=== PATIENT | female | born 1940 | race Caucasian/White ===

== ENCOUNTER → 2017-01-02 | Outpatient (CLI) | payer OTHER ==
[2016-01-04 12:59] VITALS: BP 141/77; PULSE 85
[~2017-01-02] MED LIST: AMOX875T PO; CALCTAB7 PO; CHOL1CAP57 PO; DENO60SO INJ; LOVA10TA2 PO; NLV/20 PO
[2017-01-02 13:03] VITALS: BP 143/84; PULSE 78; TEMP 36.5; O2SAT 94
--- NOTE | 2017-01-02 13:53 | Radiation Oncology Follow-Up ---
Radiation Oncology Follow-Up Date of Visit Jan 02, 2017. Reason For Visit Annual follow-up Radiation Completion Date Hypo 05/27/12 Diagnosis (1) Ductal carcinoma in situ (DCIS) of right breast Status: Resolved Onset Date: 02/14/2012 Stage: 0 Permanent Comment: Abnormal right breast mammogram Status post stereotactic vacuum-assisted biopsy 02/14/2012 revealing DCIS Estrogen receptor positive progesterone receptor positive HER-2/margareth positive Protocol study with use of Herceptin in DCIS Status post radiation therapy utilizing hypo-fractionation completed 05/27/2012 received 5006 cGy Last Edited By: Fely Vargas on Jan 04, 2015 13:45 Interim History She is doing well over this past year. She has noted no change from her breast. She has noticed no masses or tenderness and no change in the axilla. She is up-to-date on mammography. She had a mammogram 03/07/2016. There was no mammographic evidence of malignancy. One year screening mammogram was recommended. BI-RADS Category 2. She continues on tamoxifen. She denies side effects. She does have osteoporosis and is being treated through medical oncology with prolia every 6 months. She was unsure as to whether her mammogram for this year is scheduled. She had participated in a protocol study using Herceptin. She was seen by the protocol nurse at her visit at medical oncology. Allergies Coded Allergies: No Known Allergies (Unverified , 11/17/14) Home Medications Scheduled Calcium Carbonate-Vitamin D W/ (Caltrate 600 Plus), 1 TAB PO DAILY Cholecalciferol (Vitamin D3), 2,000 INTER.UNIT PO DAILY Denosumab (Prolia), 60 MG INJ Q6 MONTHS Lovastatin (Mevacor), 10 MG PO DAILY Tamoxifen Citrate (Tamoxifen Citrate), 20 MG PO DAILY Review of Systems Gastrointestinal: Symptoms: WNL Oral: Symptoms: No Problems Respiratory: Symptoms: WNL Other Respiratory: " had pneumonia in " Urinary: Symptoms: WNL Skin: Symptoms: No Problems Breast: Right Upper Arm Measurement: 25.2 Right Mid Arm Measurement: 20.0 Right Wrist Measurement: 15.4 Left Upper Arm Measurement: 25.4 Left Mid Arm Measurement: 21.0 Left Wrist Measurement: 15.4 Arm Dominence: Right Patient Cosmetic Evaluation: Excellent Staff Cosmetic Evalaluation: Excellent Physical Exam Vital Signs Date Time Temp Pulse Resp B/P Pulse Ox O2 Delivery O2 Flow Rate FiO2 01/02/17 13:03 36.5 78 16 143/84 94 Pain: Side: Bilateral Pain Location: None Patient Pain Scale: 0 - 10 Initial Pain Intensity: 0.0 Fatigue: None General Appearance: no apparent distress Eyes: normal inspection, EOMI ENT: normal ENT inspection, hearing grossly normal Neck: no adenopathy, thyroid normal Respiratory/Chest: lungs clear, no respiratory distress, no accessory muscle use Breast: Breast examination reveals well-healed incisions in the right breast. There are no masses or tenderness and no axillary adenopathy. She has a slight amount of telangiectasia in the area of the incision. There are no skin retractions or nipple changes. Using the Crownpoint score cosmesis she has a good outcome. Left breast showed no masses or tenderness no axillary adenopathy. Cardiovascular: regular rate, rhythm, no gallop, no murmur Abdomen: non tender, soft Neurologic/Psychiatric: no motor/sensory deficits, alert, normal mood/affect Skin: warm/dry Lymphatic: no adenopathy Laboratory Studies Test 11/07/16 10:26 White Blood Count 6.79 K/uL (4.8-10.8) Red Blood Count 4.56 M/uL (4.2-5.4) Hemoglobin 14.1 g/dL (12.0-16.0) Hematocrit 41.8 % (37-47) Mean Corpuscular Volume 91.7 fL (80-100) Mean Corpuscular Hemoglobin 30.9 pg (25-34) Mean Corpuscular Hemoglobin Concent 33.7 g/dl (32-36) Platelet Count 215 K/uL (130-400) Mean Platelet Volume 10.1 fL (7.4-10.4) Neutrophils (%) (Auto) 56.5 % Lymphocytes (%) (Auto) 26.5 % Monocytes (%) (Auto) 7.8 % Eosinophils (%) (Auto) 8.4 % Basophils (%) (Auto) 0.7 % Neutrophils # (Auto) 3.83 K/uL (1.4-6.5) Lymphocytes # (Auto) 1.80 K/uL (1.2-3.4) Monocytes # (Auto) 0.53 K/uL (0.11-0.59) Eosinophils # (Auto) 0.57 K/uL (0-0.5) Basophils # (Auto) 0.05 K/uL (0-0.2) RDW Standard Deviation 42.8 fL (36.4-46.3) RDW Coefficient of Variation 12.8 % (11.5-14.5) Immature Granulocyte % (Auto) 0.1 % Immature Granulocyte # (Auto) 0.01 K/uL (0.00-0.02) Sodium Level 142 mmol/L (136-145) Potassium Level 4.3 mmol/L (3.5-5.1) Chloride Level 105 mmol/L (98-107) Carbon Dioxide Level 32 mmol/L (21-32) Anion Gap 5.0 mmol/L (3-11) Blood Urea Nitrogen 16 mg/dl (7-18) Creatinine 0.82 mg/dl (0.60-1.20) Est Creatinine Clear Calc Drug Dose 44.2 ml/min Estimated GFR () 80.0 Estimated GFR (Non- 69.0 BUN/Creatinine Ratio 19.3 (10-20) Random Glucose 102 mg/dl (70-99) Calcium Level 9.0 mg/dl (8.5-10.1) Total Bilirubin 0.3 mg/dl (0.2-1) Aspartate Amino Transferase (AST) 15 U/L (15-37) Alanine Aminotransferase (ALT) 22 U/L (12-78) Alkaline Phosphatase 44 U/L (45-117) Lactate Dehydrogenase 206 U/L (84-246) Total Protein 6.5 gm/dl (6.4-8.2) Albumin 3.5 gm/dl (3.4-5.0) Globulin 3.0 gm/dl (2.5-4.0) Albumin/Globulin Ratio 1.2 (0.9-2) Additional Studies Patient: TIFF GOMEZ [facility] Rec: [id number] Address1: [address] [place] [address] Address2: Acct ID: [id number] Date: 1940 Sex: F Ref Phy: Att Phy: Fely Vargas PA-C Pri Phy: Alfonzo Vargas M.D. Inter Phy: Sury Benitez [facility] Zip: [place] [address] SC: [id number] Report #: [id number] Stove Installer: BIBIANA Diagnosis: ASYMPTOMATIC/HX BREAST CA Service Date: 03/07/16 MNE: [id number] Ordering Dr: Fely Vargas PA-C CC: Fely Vargas PA-C CONF: DICTATED BY: Sury Benitez MD MAMMOGRAPHY REPORT BILATERAL DIGITAL SCREENING MAMMOGRAM 3D/2D WITH CAD: 03/07/2016 CLINICAL HISTORY: Routine screening mammogram. Comparison is made to exams dated: 03/04/2015 mammogram, 03/01/2014 mammogram, 02/16/2013 mammogram, 09/04/2012 mammogram, 03/09/2010 mammogram, and 03/26/2006 mammogram - [facility]. FINDINGS: Breast tomosynthesis in addition to full field digital CC and MLO views were obtained. The tissue of both breasts is heterogeneously dense, which may obscure small masses. Current study was also evaluated with a Computer Aided Detection (CAD) system. There is stable expected architectural distortion in the anterior retroareolar right breast, at the site of prior lumpectomy. Surgical clips remain in place. There are moderate vascular calcifications in the breasts. A stable asymmetry in the superior posterior left breast on the MLO view is similar on all available prior mammograms dating back to at least 03/26/2006, therefore likely benign. No new suspicious mass, architectural distortion or cluster of suspicious microcalcifications is seen. IMPRESSION: ACR BI-RADS CATEGORY 2: BENIGN There is no mammographic evidence of malignancy. A 1 year screening mammogram is recommended. The patient will receive written notification of the results. Approximately 10% of breast cancers are not detected with mammography. A negative mammographic report should not delay biopsy if a clinically suggestive mass is present. Sury Benitez M.D. ay/:03/07/2016 11:48:49 Sterile Process Tech: Mahsa BALBUENA(Marc)(M), [facility] letter sent: Normal 1/2 BI-RADS Code: ACR BI-RADS Category 2: Benign Dictated by: Sury Benitez MD Signed by: Sury Benitez MD Assessment & Plan Plan: The mammography department was called and she did have a mammogram scheduled for March. She is given the date and time. Continue on the tamoxifen. Continue follow-up with medical oncology and her primary care physician. A follow-up appointment with our office was not given. She may call if she has May questions or concerns we'll be happy to see her. Total Time In Follow-Up I spent 20 minutes the need to the patient and performing examination. I spent 15 minutes reviewing information completing this note. Copy To May Marshall., SHARIFA; Alfonzo Vargas M.D.; Nikia Armendariz CRNP
== END | disposition home or self-care (01) ==
LOC: C.ONC 12:58
PROVIDERS: ATTEND Physician Assistant Medical
DX: Z08 Encounter for follow-up examination after completed treatment for malignant neoplasm (principal); Z92.3 Personal history of irradiation; Z85.3 Personal history of malignant neoplasm of breast

== ENCOUNTER → 2017-02-22 | Outpatient (CLI) | payer OTHER ==
[2017-02-22 12:01] LABS: BASO % 0.4 %; BASO ABS # 0.03 K/uL (0-0.2); COMPLETE YES; EOS % 10.5 %; HEMATOCRIT 43.8 % (37-47); IG% 0.1 %; LYMPH % 28.8 %; MEAN CELL VOLUME 91.8 fL (80-100); MEAN CORPUSCULAR HEMOGLOBIN 29.4 pg (25-34); MEAN PLATELET VOLUME 9.9 fL (7.4-10.4); MONO % 8.5 %; NEUT % 51.7 %; PLATELET COUNT 219 K/uL (130-400); RED BLOOD COUNT 4.77 M/uL (4.2-5.4); WHITE BLOOD COUNT 7.63 K/uL (4.8-10.8)
[2017-02-22 12:33] LABS: ALB/GLOB RATIO 1.1 (0.9-2); ALKALINE PHOSPHATASE 45 U/L (45-117); ALT/SGPT 21 U/L (12-78); AST/SGOT 20 U/L (15-37); BLOOD UREA NITROGEN 13 mg/dl (7-18); BUN/CREATININE RATIO 14.9 (10-20); CALCIUM 8.4 mg/dl (8.5-10.1); CARBON DIOXIDE 30 mmol/L (21-32); CHLORIDE 109 mmol/L (98-107); CHOLESTEROL 168 mg/dl (0-200); CREATININE 0.88 mg/dl (0.60-1.20); GLUCOSE 100 mg/dl (70-99); POTASSIUM 4.3 mmol/L (3.5-5.1); SODIUM 143 mmol/L (136-145); TRIGLYCERIDES 115 mg/dl (0-150); VERY LOW DENSITY LIPOPROT CALC 23 mg/dl
[2017-02-22 12:35] LABS: CHOLESTEROL/HDL RATIO 2.5; HDL CHOLESTEROL 68 mg/dl; LDL CHOLESTEROL CALCULATED 77 mg/dl
== END | disposition home or self-care (01) ==
LOC: C.LABBFT 08:33
PROVIDERS: ATTEND Internal Medicine Pulmonary Disease
DX: E78.01 Familial hypercholesterolemia (principal); J33.9 Nasal polyp, unspecified; D05.90 Unspecified type of carcinoma in situ of unspecified breast

== ENCOUNTER → 2017-03-08 | Outpatient (CLI) | payer OTHER ==
--- NOTE | 2017-03-08 13:48 | MAMMOGRAPHY REPORT ---
BILATERAL DIGITAL SCREENING MAMMOGRAM TOMOSYNTHESIS WITH CAD: 03/08/2017 CLINICAL HISTORY: Routine screening. Patient has no complaints. TECHNIQUE: Breast tomosynthesis in addition to standard 2D mammography was performed. Current study was also evaluated with a Computer Aided Detection (CAD) system. COMPARISON: Comparison is made to exams dated: 03/07/2016 mammogram, 03/04/2015 mammogram, 09/01/2014 mammogram, 03/01/2014 mammogram, 02/16/2013 mammogram, and 09/04/2012 mammogram - [facility]. BREAST COMPOSITION: The tissue of both breasts is heterogeneously dense, which may obscure small mas ses. FINDINGS: No suspicious masses, calcifications, or areas of architectural distortion are noted in ei ther breast. There has been no significant interval change compared to prior exams. There are stable postsurgical changes in the right breast from prior lumpectomy. Bilateral benign-appearing calcific ations, predominantly vascular calcifications, are again noted. Asymmetry in the left superior poste rior breast is stable. IMPRESSION: ACR BI-RADS CATEGORY 2: BENIGN There is no mammographic evidence of malignancy. A 1 year screening mammogram is recommended. The pa tient will receive written notification of the results. Approximately 10% of breast cancers are not detected with mammography. A negative mammographic report should not delay biopsy if a clinically suggestive mass is present. Georgiana Rodriguez M.D. /:03/08/2017 12:06:17 Embroiderer: Gabbie Cook, [facility] letter sent: Normal 1/2 BI-RADS Code: ACR BI-RADS Category 2: Benign
== END | disposition home or self-care (01) ==
LOC: C.MAMM 10:39
PROVIDERS: ATTEND Nurse Practitioner Family
DX: Z12.31 Encounter for screening mammogram for malignant neoplasm of breast (principal); Z85.3 Personal history of malignant neoplasm of breast; Z08 Encounter for follow-up examination after completed treatment for malignant neoplasm

== ENCOUNTER 2017-06-23 16:03 | Emergency (ER) | payer OTHER ==
[~2017-06-23] VITALS: Ht 157.5 cm; Wt 54.5 kg
[~2017-06-23 16:03] MED LIST changes: -AMOX875T PO
[2017-06-23 16:18] VITALS: TEMP 37.1; Ht 157.5 cm; Wt 54.5 kg
[2017-06-23] MEDS ORDERED: TRIMETHOPRIM/POLYMYXIN B OP ONE (17:15)
--- NOTE | 2017-06-23 17:15 | EMERGENCY ROOM VISIT NOTE ---
History First contact with patient: 16:53 Chief Complaint: OTHER COMPLAINT Stated Complaint: COLD IN EYES ETC History of Present Illness The patient is a 77 year old female who presents to the Emergency Room with complaints of discharge from her eyes and cold-like symptoms for the last 3 days. The patient reports a history of nasal polyps. She thinks that her nose is completely stuffed shot. She has had green drainage from the nose. She also reports a cough. It is nonproductive. She woke up yesterday morning with her eyes matted shut. They're draining purulent drainage. She denies any changes in vision. Review of Systems 10 system review performed and negative unless noted in HPI or below Past Medical/Surgical History Medical Problems: (1) Ductal carcinoma in situ (DCIS) of right breast C Family History Cancer Diabetes mellitus Heart disease Social History Smoking Status: Never Smoker Marital Status: Housing Status: lives with significant other Occupation Status: retired Current/Historical Medications Scheduled Amoxicillin & Pot Clavulanate (Augmentin 875-125 mg), 1 TAB PO BID Calcium Carbonate-Vitamin D W/ (Caltrate 600 Plus), 1 TAB PO DAILY Cholecalciferol (Vitamin D3), 2,000 INTER.UNIT PO DAILY Denosumab (Prolia), 60 MG INJ Q6 MONTHS Lovastatin (Mevacor), 10 MG PO DAILY Tamoxifen Citrate (Tamoxifen Citrate), 20 MG PO DAILY Physical Exam Vital Signs Date Time Temp Pulse Resp B/P (MAP) Pulse Ox O2 Delivery O2 Flow Rate FiO2 06/23/17 19:22 98 18 150/75 95 Room Air 06/23/17 16:18 37.1 105 18 138/81 90 Room Air Physical Exam VITALS: Vitals are noted on the nurse's note and reviewed by myself. Vital signs stable. GENERAL: 77-year-old female, in no acute distress, nondiaphoretic, well- developed well-nourished. SKIN: The skin was without rashes, erythema, edema, or bruising. HEAD: Normocephalic atraumatic. EYES: Yellow, purulent drainage noted from the eyes bilaterally. No significant injection bilaterally. Pupils equal round and reactive to light and accommodation. Conjunctivae without injection, sclerae without icterus. Extraocular movements intact. NOSE: Large polyp noted in the left naris. Turbinates edematous bilaterally. The right terminated is not patent. Green discharge noted. MOUTH: Mucous membranes moist. Tonsils are not enlarged. Pharynx without erythema or exudate. Uvula midline. Airway patent. Tongue does not deviate. NECK: Supple without nuchal rigidity. No lymphadenopathy. Cervical spine is nontender. No JVD. HEART: Regular rate and rhythm without murmurs gallops or rubs. LUNGS: Clear to auscultation bilaterally without wheezes, rales or rhonchi. No accessory muscle use. MUSCULOSKELETAL: No muscle atrophy, erythema, or edema noted. Strength 5/5 throughout. NEURO: Patient was alert and oriented to person place and time. Normal sensation to touch. No focal neurological deficits. Medical Decision & Procedures ER Provider Diagnostic Interpretation: Chest x-ray IMPRESSION: 1. No acute cardiopulmonary disease. Medications Administered Medications (Trade) Dose Ordered Sig/Pedrito Route Start Time Stop Time Status Last Admin Dose Admin Polymyxin/ Trimethoprim Sulfate (Polytrim Oph Soln) 2 drops NOW ONCE OP 06/23/17 17:15 06/23/17 17:16 DC 06/23/17 17:24 2 DROPS Amoxicillin/ Clavulanate Potassium (Augmentin Tab) 875 mg NOW ONCE PO 06/23/17 19:15 06/23/17 19:16 DC 06/23/17 19:24 875 MG ED Course The patient was seen and examined Polytrim drops were administered to both eyes Imaging was performed and reviewed The patient was given 1 dose of Augmentin. We discussed the results of her workup. She voiced understanding. Discharge instructions were reviewed, and she was discharged in good condition Medical Decision Differential diagnosis: Bacterial versus viral conjunctivitis, sinusitis, pneumonia, bronchitis This patient is a 77-year-old female that presents emergency department with complaints of discharge from both of her eyes and also a very stuffy nose. On exam, the patient had purulent drainage from both eyes. She also had significant edema of the turbinates in her nose in addition to polyps. Given the purulent discharge, and amount of edema, I opted to treat the patient with a ten-day course of Augmentin for sinusitis. She was also given Polytrim eyedrops for conjunctivitis. This chart was completed in part utilizing [employer] Voice Recognition software. Attempts were made to minimize the grammatical errors, random word insertions, pronoun errors and incomplete sentences. Any formal questions or concerns about the content, text or information contained within the body of this dictation should be directly addressed to the provider for clarification. Blood Pressure Screening Patient's blood pressure: Elevated blood pressure Blood pressure disposition: Elevated BP felt to be situational Impression Primary Impression: Conjunctivitis Additional Impression: Sinusitis Departure Information Dispostion Home / Self-Care Condition GOOD Prescriptions Amoxicillin & Pot Clavulanate (Augmentin 875-125 mg) 1 Tab Tab 1 TAB PO BID for 7 Days, #14 TAB Prov: Maria Alejandra Verduzco PA-C 06/23/17 Referrals Alfonzo Vargas M.D. (PCP) Patient Instructions [facility] Additional Instructions You were evaluated in the hospital today for a cough and an eye infection. You have been prescribed eyedrops and an antibiotic. Please take the entire course of oral antibiotics. Please eat yogurt at least once daily while on this antibiotic. Apply to eyedrops to each eye 3 times daily for 5 days. Please follow-up with her primary care physician within the next 3 days for a recheck. Please return to the emergency department with any new or worsening symptoms. Problem Qualifiers
--- NOTE | 2017-06-23 17:51 | EMERGENCY ROOM VISIT NOTE ---
ED Visit Note First contact with patient: 16:53 77-year-old female with cold-like symptoms and a long history of nasal polyps was fully evaluated by Maria Alejandra Verduzco PA-C. Please see her note. I also independently evaluated the patient.
--- NOTE | 2017-06-23 18:55 | DIAGNOSTIC IMAGING REPORT ---
CHEST 2 VIEWS ROUTINE CLINICAL HISTORY: 77 years-old Female presenting with cough r/o PNA. TECHNIQUE: PA and lateral views of the chest were obtained. COMPARISON: 10/24/2015. FINDINGS: Atherosclerosis of aortic arch. Cardiac silhouette normal in size. Surgical clips project over the right lung base, possibly within the right breast. Lungs and pleural spaces clear. Old rib fracture of the right posterior sixth rib again noted. Dextroscoliotic curvature of the spine may be present, although the patient is LONG rotated. Upper abdomen normal. IMPRESSION: 1. No acute cardiopulmonary disease. Electronically signed by: Kevin Argueta M.D. 06/23/2017 6:54 PM Dictated Date/Time: 06/23/2017 6:53 PM
[2017-06-23] MEDS ORDERED: AMOX875T PO (19:02)
[2017-06-23] MEDS ORDERED: AMOXICILLIN/CLAVULANATE TAB 875 MG TAB PO ONE (19:15)
[2017-06-23 19:22] VITALS: BP 150/75; PULSE 98; O2SAT 95
== END 2017-06-23 19:27 | disposition home or self-care (01) ==
LOC: C.EDB 16:04 → C.EDD 19:27
DX: H10.9 Unspecified conjunctivitis (principal); J32.9 Chronic sinusitis, unspecified; Z80.9 Family history of malignant neoplasm, unspecified; Z83.3 Family history of diabetes mellitus; Z79.899 Other long term (current) drug therapy; J33.9 Nasal polyp, unspecified

== ENCOUNTER → 2017-09-06 | Outpatient (CLI) | payer OTHER ==
[2017-09-06 13:10] LABS: BLOOD UREA NITROGEN 15 mg/dl (7-18); BUN/CREATININE RATIO 16.2 (10-20); CALCIUM 8.9 mg/dl (8.5-10.1); CARBON DIOXIDE 30 mmol/L (21-32); CHLORIDE 105 mmol/L (98-107); CREATININE 0.91 mg/dl (0.60-1.20); GLUCOSE 94 mg/dl (70-99); MAGNESIUM 2.4 mg/dl (1.8-2.4); POTASSIUM 4.4 mmol/L (3.5-5.1); SODIUM 139 mmol/L (136-145)
== END | disposition home or self-care (01) ==
LOC: C.LAB1850 10:19
PROVIDERS: ATTEND Internal Medicine Cardiovascular Disease
DX: I44.7 Left bundle-branch block, unspecified (principal); I42.9 Cardiomyopathy, unspecified; I49.3 Ventricular premature depolarization; R06.09 Other forms of dyspnea

== ENCOUNTER → 2017-09-26 | Outpatient (CLI) | payer OTHER ==
[~2017-09-26] MED LIST changes: +REGADENOSON 0.4 MG/5 ML SYR ONE
--- NOTE | 2017-09-27 07:28 | Myocardial Perfusion Study ---
Myocardial Perfusion Study Rpt Myocardial Perfusion Study Rpt Date of Service 09/27/2017 Myocardial Perfusion Study Rpt Procedure: 1. Myocardial perfusion study performed in multiple views/images 2. Lexiscan pharmacologic stress ECG Indications: 1. Cardiomyopathy 2. LBBB Consent: Informed written consent was obtained prior to the procedure. Ordering physician: Dr. Clinton Procedural details: For the stress portion of the study, Lexiscan 0.4 mg was intravenously administered followed by a saline flush. This was followed by 33 mCi of technetium 99m Cardiolite, injected at 11:15 a.m. on 09/26/2017. 30 minutes following the injection, imaging of the heart was performed in multiple projections. For the rest portion of the study, 9.5 mCi technetium 99m Cardiolite was injected intravenously at 9:35 a.m. on 09/26/2017. 1 hour following the injection, imaging of the heart was performed in the same projections. Lexiscan stress ECG: Resting ECG demonstrated: NSR at 68 bpm. LBBB. Maximum heart rate: 106 bpm Resting blood pressure: 156/69 mmHg Maximum blood pressure: 156/69 mmHg Maximal, age-predicted heart rate: 74 % Significant ST changes: None Arrhythmia: No arrhythmia. PVCs noted. Symptoms: Coughing Findings: Rotating raw imaging demonstrated no significant lung uptake. There is no significant motion artifact. Heart size appeared normal. Myocardial perfusion demonstrated a moderate sized area of mildly reduced uptake involving the basal to apical septum, basal to apical anteroseptum, and mid to distal anterior wall. These defects were fixed in post stress and rest imaging. There is also severe intestinal uptake on the rest imaging noted near the inferolateral wall. There were no significant reversible defects to suggest ischemia. Ejection fraction: 66 % Wall motion: Normal No significant transient ischemic dilation. Impression: 1. No ischemic changes suggested on Lexiscan myocardial perfusion study. 2. Fixed LAD territory defects likely represent LBBB artifact given normal wall motion. 3. Normal left ventricular systolic function. EF 66%. 4. Normal wall motion. 5. No arrhythmia. 6. Indeterminate Lexiscan ECG given LBBB.
== END | disposition home or self-care (01) ==
LOC: C.NUCL 09:06
PROVIDERS: ATTEND Internal Medicine Cardiovascular Disease
DX: I42.9 Cardiomyopathy, unspecified (principal); R06.09 Other forms of dyspnea; I44.7 Left bundle-branch block, unspecified; I49.3 Ventricular premature depolarization

== ENCOUNTER → 2017-10-29 | Outpatient (CLI) | payer OTHER ==
[~2017-10-29] MED LIST changes: -REGADENOSON 0.4 MG/5 ML SYR ONE
[2017-10-29 12:52] LABS: BASO % 0.6 %; BASO ABS # 0.04 K/uL (0-0.2); EOS % 7.6 %; EOS ABS # 0.48 K/uL (0-0.5); HEMOGLOBIN 14.4 g/dL (12.0-16.0); IG# 0.01 K/uL (0.00-0.02); LYMPH % 32.2 %; LYMPH ABS # 2.02 K/uL (1.2-3.4); MEAN CELL VOLUME 92.3 fL (80-100); MEAN CORPUSCULAR HEMOGLOBIN 30.9 pg (25-34); MEAN CORPUSCULAR HGB CONC 33.5 g/dl (32-36); NEUT % 51.4 %; NEUT ABS # 3.23 K/uL (1.4-6.5); PLATELET COUNT 234 K/uL (130-400); RED CELL DISTRIBUTION WIDTH CV 12.9 % (11.5-14.5); WHITE BLOOD COUNT 6.28 K/uL (4.8-10.8)
[2017-10-29 13:28] LABS: ALBUMIN 3.3 gm/dl (3.4-5.0); ALT/SGPT 24 U/L (12-78); AST/SGOT 16 U/L (15-37); BLOOD UREA NITROGEN 14 mg/dl (7-18); CALCIUM 8.7 mg/dl (8.5-10.1); CARBON DIOXIDE 28 mmol/L (21-32); CREATININE 0.97 mg/dl (0.60-1.20); GLUCOSE 114 mg/dl (70-99); POTASSIUM 4.8 mmol/L (3.5-5.1); SODIUM 139 mmol/L (136-145)
[2017-10-29 13:29] LABS: ALKALINE PHOSPHATASE 52 U/L (45-117); TOTAL PROTEIN 6.4 gm/dl (6.4-8.2)
== END | disposition home or self-care (01) ==
LOC: C.LABBFT 10:49
PROVIDERS: ATTEND Nurse Practitioner Family
DX: D05.90 Unspecified type of carcinoma in situ of unspecified breast (principal)

== ENCOUNTER → 2018-04-21 | Outpatient (CLI) | payer OTHER | END | disposition home or self-care (01) | LOC: C.MAMM 09:54 | PROVIDERS: ATTEND Nurse Practitioner Family | DX: D05.90 Unspecified type of carcinoma in situ of unspecified breast (principal); M81.0 Age-related osteoporosis without current pathological fracture; M85.88 Other specified disorders of bone density and structure, other site; M85.852 Other specified disorders of bone density and structure, left thigh ==

== ENCOUNTER → 2018-05-06 | Outpatient (CLI) | payer OTHER ==
--- NOTE | 2018-05-07 13:38 | MAMMOGRAPHY REPORT ---
BILATERAL DIGITAL SCREENING MAMMOGRAM TOMOSYNTHESIS WITH CAD: 05/06/2018 CLINICAL HISTORY: Asymptomatic. Personal history of breast cancer. TECHNIQUE: The study was acquired using full field digital technology and interpreted from soft copy. Breast tomosynthesis in addition to standard 2D mammography was performed. Current study was also ev aluated with a Computer Aided Detection (CAD) system. COMPARISON: Comparison is made to exams dated: 03/08/2017 mammogram, 03/07/2016 mammogram, 03/04/2015 m ammogram, 09/01/2014 mammogram, 03/01/2014 mammogram, and 02/16/2013 mammogram - [facility] enter. BREAST COMPOSITION: The tissue of both breasts is heterogeneously dense, which may obscure small mass es. FINDINGS: There are stable postsurgical changes in the right breast, with skin irregularity in the an terior breast. There are stable surgical clips in place. Moderate vascular calcification bilaterall y. No new suspicious mass, architectural distortion or cluster of microcalcifications is seen. IMPRESSION: ACR BI-RADS CATEGORY 1: NEGATIVE There is no mammographic evidence of malignancy. A 1 year screening mammogram is recommended.( 019) The patient will receive written notification of the results. Some breast cancers are not detected with mammography. A negative mammographic report should not quiana y biopsy if a clinically suggestive mass is present. Sury Benitez M.D. ay/:05/06/2018 18:56:34 Supervisor Pipe Manufacture: Yun Olmos, RT(Marc)(Petrona)(BD), [facility] letter sent: Normal 1/2 BI-RADS Code: ACR BI-RADS Category 1: Negative
== END | disposition home or self-care (01) ==
LOC: C.MAMM 08:54
PROVIDERS: ATTEND Nurse Practitioner Family
DX: Z12.31 Encounter for screening mammogram for malignant neoplasm of breast (principal); Z85.3 Personal history of malignant neoplasm of breast

== ENCOUNTER 2025-07-29 20:04 | Inpatient (IN) ==
[2025-07-29] MEDS: OPTIRAY 320 125ml IV ONE (20:09)
[2025-07-29] MEDS: SODIUM CHLORIDE 0.9% 1,000 ML IV ONE (20:20)
--- NOTE | 2025-07-29 20:29 | CT Scan Report ---
Exam(s): CT HEAD Without Contrast EXAM: CT Head Without Intravenous Contrast CLINICAL HISTORY: Reason for exam: neuro deficit, acute stroke suspected. TECHNIQUE: Axial computed tomography images of the head/brain without intravenous contrast. CTDI is 42.53 mGy and DLP is 774.27 mGy-cm. Automated exposure control was utilized for the study. A dose lowering technique was utilized adhering to the principles of ALARA. Moderate motion artifact, improved with repeat scanning. COMPARISON: None. FINDINGS: Brain: No mass, edema, mass effect or acute infarct. No acute hemorrhage. Mild atrophy and chronic, nonspecific white matter disease. Ventricles: No hydrocephalus or midline shift. Bones/joints: No acute finding. Soft tissues: No scalp hematoma. Visualized Sinuses: Scattered mucosal thickening, no fluid levels. Moderate bilateral nasal cavity soft tissue nodule, probable nasal polyps. Mastoid air cells: No mastoid effusion. IMPRESSION: 1. Mild age-related findings. 2. No acute infarct, bleed, or acute intracranial abnormality. 3. Limited evaluation due to motion artifact, in spite of repeat scanning. Communications: Call Doctor Stroke Electronically signed by: Narda Emery M.D. 07/29/25 20:27 PM
--- NOTE | 2025-07-29 20:31 | CT Scan Report ---
Exam(s): CTA NECK With Contrast IV Amt: 118 ml optiray 320 EXAM: CT Angiography Neck With Intravenous Contrast CLINICAL HISTORY: Reason for exam: neuro deficit, acute stroke suspected. TECHNIQUE: Routine carotid CT angiography protocol was performed with intravenous contrast. NASCET criteria using the distal ICAs for comparison were used for evaluation of stenoses. CTDI is 11.36 mGy and DLP is 429.44 mGy-cm. Automated exposure control was utilized for the study. A dose lowering technique was utilized adhering to the principles of ALARA. MIP reconstructed images were created and reviewed. Moderate to severe motion and artifact from collaterals in the vertebral region. CONTRAST: Patient received 118 ml optiray 320 of IV contrast COMPARISON: None. FINDINGS: Right common carotid artery: Patent. Right internal carotid artery: Dense atherosclerotic calcification of the bifurcation, with significant luminal narrowing, likely severe, 80- 90% stenosis, though motion artifact limits evaluation. Right vertebral artery: Patent. Codominant. Left common carotid artery: Patent. Left internal carotid artery: Patent. Minimal bifurcation atherosclerosis, without significant stenosis Left vertebral artery: Patent. Other: IMPRESSION: 1. Severe RIGHT ICA stenosis, probable 80-90%. 2. No other dissection/occlusion/significant stenosis. 3. Significant artifact limits detail particularly for exact luminal narrowing percentage. CAROTID STENOSIS REFERENCE USING NASCET CRITERIA: % ICA stenosis = (1 - narrowest ICA diameter/diameter of distal cervical ICA) x 100. Mild - <50% stenosis. Moderate - 50-69% stenosis. Severe - 70-94% stenosis. Near occlusion - 95-99% stenosis. Occluded - 100% stenosis. Communications: Call Doctor Stroke Electronically signed by: Narda Emery M.D. 07/29/25 20:30 PM
[2025-07-29 20:32] LABS: Hematocrit (blood only) 45.0 % (37.0-47.0); Hemoglobin 14.6 g/dL (12.0-16.0); Immature Granulocytes # (auto) 0.05 K/uL (0.01-0.20); Immature Granulocytes % (auto) 0.6 %; Mean Corpuscular Hemoglobin 29.7 pg (25.0-34.0); Mean Corpuscular Volume 91.5 fL (80.0-100.0); Platelet Count 439 K/uL (130-400); RDW Standard Deviation 40.1 fL (36.4-46.3); Red Blood Count 4.92 M/uL (4.20-5.40); White Blood Count 8.81 K/ul (4.8-10.8)
--- NOTE | 2025-07-29 20:34 | Emergency Department Note ---
Impression & Plan Stroke-like symptoms, Hypertension, Right sided weakness, Carotid artery stenosis ED Provider Note NAME: TIFF GOMEZ AGE: 85 SEX: F : 1940 ARRIVES VIA: Ambulance INFORMANT: Patient ED PROVIDER(S): Parish Muller MD CHIEF COMPLAINT: right sided weakness, stroke alert PLAN: Disposition: Admit MEDICAL DECISION MAKING: The patient is a pleasant 85-year-old woman with past medical history of hyperlipidemia, history of osteoporosis, history of breast cancer 2011 who presents to the emergency department via EMS and then accompanied by her daughter for evaluation of acute onset of right-sided weakness with blurred vision with last known well estimated to be 1800 per the patient's granddaughter who was home at the time. The patient had apparently had a minor fall in the setting of right-sided weakness. There was no head strike or loss of consciousness. Patient had been in her normal state of health and had cooked dinner as she usually does. Per discussion with EMS on medical command call the patient exhibited significant right-sided weakness and facial droop. Stroke alert was activated in the field subsequently per my discussion on medical command call. Patient was taken immediately to CT for stroke assessment. On arrival the patient is in no distress, afebrile with heart rate in the 80s and blood pressure 160s-190s/80s-90s and vital signs otherwise stable. She exhibits right facial droop and mild word finding difficulty/aphasia. Right upper and right lower extremity demonstrate 4/[address] of the head and CTA of the head and neck completed and discussed with radiology and no evidence of ICH or acute CVA. Severe right carotid stenosis is present. Case was discussed with Dr. Johnson, [facility] telestroke neurology who did evaluate the patient via the telestroke terminal. Appreciate consultation and recommendations. Given the patient's symptoms and best estimate of LKW within the TNK window, treatment with TNK is recommended. Patient and family did consent. Blood pressure was controlled with 10 mg of IV labetalol improving to 140s/80s. EKG without overt acute ischemia. CXR negative for acute cardiopulmonary process per my personal preliminary review/interpretation. WBC, H/H within normal limits. Platelets 4 39K, nonspecific. Chemistry without metabolic acidosis. Electrolytes and LFTs unremarkable. High- sensitivity troponin 6.6, within normal limits. Of note, following administration of TNK the patient did develop increased confusion and recurrence of elevated blood pressures which were additionally treated with IV labetalol. She was sent back for repeat CT of the head without contrast and this was negative for acute ICH. Mentation did subsequently improve. Case was discussed with Dr. Mae, [facility] hospitalist, who will evaluate the patient for admission. Further management per admitting team. Triage Nursing notes reviewed and agree them. Prior/external medical records reviewed Vital Signs: reviewed Differential diagnosis: Infection, dehydration, metabolic abnormality, hypo/hyperglycemia, electrolyte disturbance, anemia, hypoxia, cardiac sources, intracerebral event, toxicologic, neurologic, as well as other pathologies. ER treatment provided: See below. Diagnostics interpreted by me: ECG: Sinus rhythm with occasional PVCs, 81 bpm, nonspecific intraventricular conduction block, LVH, no sgarbossa criteria, QTc 501, QRS 136. Similar to prior. Cardiac Monitoring: An order for continuous cardiac monitoring was placed and demonstrated Sinus rhythm with occasional PVCs, 81 bpm. Laboratory studies: See below Imaging studies: See below Consultation(s): Dr. Johnson, [facility] telestroke neurology. Dr. Mae, [facility] hospitalist. HPI: Per MDM. ROS: See above HPI for pertinent positives & negatives. A total of 10 systems reviewed and were otherwise negative. VITALS:See Below PHYSICAL EXAMINATION: GENERAL: Awake, alert, in no distress HENT: Normocephalic, atraumatic. Oropharynx with dry mucous membranes and otherwise unremarkable. EYES: Normal conjunctiva. Sclera non-icteric. EOMI. No nystamgus. PEARRL. NECK: Supple. No nuchal rigidity. FROM. No JVD. RESPIRATORY: Clear to auscultation. CARDIAC: Regular rate, normal rhythm. Extremities warm and well perfused. Pulses equal. ABDOMEN: Soft, non-distended. No tenderness to palpation. No rebound or guarding. No masses. MUSCULOSKELETAL: Chest examination reveals no tenderness. The back is symmetrical on inspection without obvious abnormality. There is no CVA tenderness to palpation. No joint edema. LOWER EXTREMITIES: Calves are equal size bilaterally and non-tender. No edema. No discoloration. NEURO: Right lower facial droop and mild word finding difficulty/aphasia. Right upper and right lower extremity demonstrate 4/5 strength with drift. SKIN: No rash or jaundice noted. ED COURSE: Critical Care: I have personally spent greater than 35 minutes of critical care time in the direct management of this patient. This includes bedside care, interpretation of diagnostic studies, and testing, discussion with consultants, patient, and family members, and other required patient management activities. This 35 minutes is in excess of all separately billable procedures. Parish Muller MD Past Med/Surg History Problem List (Updated 07/29/25 @ 23:01 by Parish Muller MD) Carotid artery stenosis (Acute) Right sided weakness (Acute) Hypertension (Acute) Carotid stenosis, symptomatic, with infarction Fall Altered mental status Hypertension Stroke-like symptoms (Acute) Hyperglycemia Encounter for pessary maintenance Chronic pansinusitis Allergic rhinitis (Chronic) Cystocele, midline (Acute) Dyslipidemia (Acute) Left bundle-branch block (Acute) Nasal polyps (Chronic) Osteoporosis (Acute) Rectocele (Acute) Uterine prolapse (Acute) Medical History Cardiomyopathy Normal EF 2018 55-60% EF PVC (premature ventricular contraction) Surgical History History of tonsillectomy and adenoidectomy History of tubal ligation History of oophorectomy Family History Family/Other Stroke Diabetes Coronary heart disease Brother Breast cancer Father Family history of hearing loss Sister Family history of hearing loss Other No family history of bleeding disorder Social History Smoking Status: Never smoker Do You Dip or Chew Tobacco: No; Hx Alcohol Use: No Preferred Language: Indonesian Communication Ability: Effective marital status: / Current Living Situation: Alone current occupational status: retired Feels Safe at Home: Yes Allergies Allergies Allergy/AdvReac Type Severity Reaction Status Date / Time No Known Drug Allergies Allergy Verified 07/13/25 13:09 Home Meds Home Medications Medication Instructions Recorded Confirmed lovastatin 20 mg tablet 20 mg PO HS 07/29/25 07/29/25 metoprolol tartrate 50 mg tablet 50 mg PO AMHS 07/29/25 07/29/25 Results & Data (ED) Vital Signs Vital Signs - 24 hr 07/29/25 20:05 07/29/25 20:05 07/29/25 20:19 Temperature 36.6 C Temperature Source Oral Pulse Rate 86 86 Pulse Rate [Finger] Pulse Rate from SpO2 Sensor Pulse Rhythm [Finger] Pulse Strength [Finger] Respiratory Rate 20 Respiratory Effort / Characteristics Respiratory Depth Respiratory Pattern Blood Pressure 172/86 H Blood Pressure [Right Arm] Blood Pressure Mean 114 Blood Pressure Mean [Right Arm] Blood Pressure Position Sitting Blood Pressure Position [Right Arm] Pulse Oximetry 95 Oxygen Delivery Method Nasal Cannula Nasal Cannula Oxygen Flow Rate 2 2 Sepsis Recent Fever Within 48 Hours No Sepsis New/Unexplained Change in Mental Status No Sepsis Action Taken by Nursing No Action Required 07/29/25 20:21 07/29/25 20:22 07/29/25 20:24 Temperature Temperature Source Pulse Rate 86 81 Pulse Rate [Finger] Pulse Rate from SpO2 Sensor 86 82 Pulse Rhythm [Finger] Pulse Strength [Finger] Respiratory Rate 27 H 20 Respiratory Effort / Characteristics Respiratory Depth Respiratory Pattern Blood Pressure 172/86 H Blood Pressure [Right Arm] Blood Pressure Mean 124 Blood Pressure Mean [Right Arm] Blood Pressure Position Blood Pressure Position [Right Arm] Pulse Oximetry 95 99 Oxygen Delivery Method Oxygen Flow Rate 2 2 Sepsis Recent Fever Within 48 Hours Sepsis New/Unexplained Change in Mental Status Sepsis Action Taken by Nursing 07/29/25 20:25 07/29/25 20:30 07/29/25 20:36 Temperature Temperature Source Pulse Rate 81 91 H Pulse Rate [Finger] Pulse Rate from SpO2 Sensor 81 91 H Pulse Rhythm [Finger] Pulse Strength [Finger] Respiratory Rate 26 H 26 H Respiratory Effort / Characteristics Respiratory Depth Respiratory Pattern Blood Pressure 161/69 H 160/105 H 180/132 H Blood Pressure [Right Arm] Blood Pressure Mean 123 123 148 Blood Pressure Mean [Right Arm] Blood Pressure Position Blood Pressure Position [Right Arm] Pulse Oximetry 98 97 Oxygen Delivery Method Oxygen Flow Rate 2 2 Sepsis Recent Fever Within 48 Hours Sepsis New/Unexplained Change in Mental Status Sepsis Action Taken by Nursing 07/29/25 20:37 07/29/25 20:42 07/29/25 20:45 Temperature Temperature Source Pulse Rate 82 83 Pulse Rate [Finger] Pulse Rate from SpO2 Sensor 85 84 Pulse Rhythm [Finger] Pulse Strength [Finger] Respiratory Rate 27 H 27 H Respiratory Effort / Characteristics Respiratory Depth Respiratory Pattern Blood Pressure 192/91 H 193/88 H Blood Pressure [Right Arm] Blood Pressure Mean 137 123 Blood Pressure Mean [Right Arm] Blood Pressure Position Blood Pressure Position [Right Arm] Pulse Oximetry 97 97 Oxygen Delivery Method Oxygen Flow Rate 2 2 Sepsis Recent Fever Within 48 Hours Sepsis New/Unexplained Change in Mental Status Sepsis Action Taken by Nursing 07/29/25 20:47 07/29/25 20:47 07/29/25 20:51 Temperature Temperature Source Pulse Rate 84 Pulse Rate [Finger] Pulse Rate from SpO2 Sensor 83 Pulse Rhythm [Finger] Pulse Strength [Finger] Respiratory Rate 30 H Respiratory Effort / Characteristics Respiratory Depth Respiratory Pattern Blood Pressure 140/77 140/77 142/106 H Blood Pressure [Right Arm] Blood Pressure Mean 126 118 Blood Pressure Mean [Right Arm] Blood Pressure Position Blood Pressure Position [Right Arm] Pulse Oximetry 98 Oxygen Delivery Method Nasal Cannula Oxygen Flow Rate 2 Sepsis Recent Fever Within 48 Hours Sepsis New/Unexplained Change in Mental Status Sepsis Action Taken by Nursing 07/29/25 20:54 07/29/25 20:55 07/29/25 20:55 Temperature Temperature Source Pulse Rate 83 Pulse Rate [Finger] Pulse Rate from SpO2 Sensor 83 Pulse Rhythm [Finger] Pulse Strength [Finger] Respiratory Rate 31 H Respiratory Effort / Characteristics Respiratory Depth Respiratory Pattern Blood Pressure 153/100 H 153/100 H Blood Pressure [Right Arm] Blood Pressure Mean 132 132 Blood Pressure Mean [Right Arm] Blood Pressure Position Blood Pressure Position [Right Arm] Pulse Oximetry 99 Oxygen Delivery Method Nasal Cannula Oxygen Flow Rate 2 Sepsis Recent Fever Within 48 Hours Sepsis New/Unexplained Change in Mental Status Sepsis Action Taken by Nursing 07/29/25 20:57 07/29/25 21:03 07/29/25 21:03 Temperature Temperature Source Pulse Rate 83 86 Pulse Rate [Finger] 86 Pulse Rate from SpO2 Sensor 83 85 Pulse Rhythm [Finger] Pulse Strength [Finger] Respiratory Rate 33 H 27 H 27 H Respiratory Effort / Characteristics Non-Labored Spontaneous Respiratory Depth Normal Respiratory Pattern Regular Blood Pressure 189/87 H Blood Pressure [Right Arm] 189/87 H Blood Pressure Mean 121 Blood Pressure Mean [Right Arm] 121 Blood Pressure Position Blood Pressure Position [Right Arm] Lying Pulse Oximetry 99 96 96 Oxygen Delivery Method Nasal Cannula Nasal Cannula Nasal Cannula Oxygen Flow Rate 4 4 4 Sepsis Recent Fever Within 48 Hours Sepsis New/Unexplained Change in Mental Status Sepsis Action Taken by Nursing 07/29/25 21:09 07/29/25 21:10 07/29/25 21:11 Temperature Temperature Source Pulse Rate 85 Pulse Rate [Finger] Pulse Rate from SpO2 Sensor 84 Pulse Rhythm [Finger] Pulse Strength [Finger] Respiratory Rate 28 H Respiratory Effort / Characteristics Respiratory Depth Respiratory Pattern Blood Pressure 158/96 H 158/96 H Blood Pressure [Right Arm] Blood Pressure Mean 117 Blood Pressure Mean [Right Arm] Blood Pressure Position Blood Pressure Position [Right Arm] Pulse Oximetry 98 Oxygen Delivery Method Nasal Cannula Oxygen Flow Rate 4 Sepsis Recent Fever Within 48 Hours Sepsis New/Unexplained Change in Mental Status Sepsis Action Taken by Nursing 07/29/25 21:12 07/29/25 21:18 07/29/25 21:27 Temperature Temperature Source Pulse Rate 95 H 82 Pulse Rate [Finger] 88 Pulse Rate from SpO2 Sensor 90 83 Pulse Rhythm [Finger] Regular Pulse Strength [Finger] Normal Respiratory Rate 17 20 31 H Respiratory Effort / Characteristics Non-Labored Spontaneous Respiratory Depth Normal Respiratory Pattern Regular Blood Pressure 178/133 H Blood Pressure [Right Arm] 177/111 H Blood Pressure Mean 148 Blood Pressure Mean [Right Arm] 133 Blood Pressure Position Blood Pressure Position [Right Arm] Lying Pulse Oximetry 93 92 94 Oxygen Delivery Method Nasal Cannula Nasal Cannula Nasal Cannula Oxygen Flow Rate 4 4 4 Sepsis Recent Fever Within 48 Hours Sepsis New/Unexplained Change in Mental Status Sepsis Action Taken by Nursing 07/29/25 21:29 07/29/25 21:30 07/29/25 21:33 Temperature Temperature Source Pulse Rate 82 Pulse Rate [Finger] 83 Pulse Rate from SpO2 Sensor 81 Pulse Rhythm [Finger] Regular Pulse Strength [Finger] Normal Respiratory Rate 29 H 35 H Respiratory Effort / Characteristics Non-Labored Spontaneous Respiratory Depth Normal Respiratory Pattern Regular Blood Pressure 163/116 H Blood Pressure [Right Arm] 166/110 H Blood Pressure Mean 131 Blood Pressure Mean [Right Arm] 128 Blood Pressure Position Blood Pressure Position [Right Arm] Lying Pulse Oximetry 94 92 Oxygen Delivery Method Nasal Cannula Nasal Cannula Nasal Cannula Oxygen Flow Rate 4 4 Sepsis Recent Fever Within 48 Hours Sepsis New/Unexplained Change in Mental Status Sepsis Action Taken by Nursing 07/29/25 21:33 07/29/25 21:36 07/29/25 21:39 Temperature Temperature Source Pulse Rate 83 85 83 Pulse Rate [Finger] Pulse Rate from SpO2 Sensor 83 85 84 Pulse Rhythm [Finger] Pulse Strength [Finger] Respiratory Rate 40 H 31 H 29 H Respiratory Effort / Characteristics Respiratory Depth Respiratory Pattern Blood Pressure 165/105 H 166/110 H Blood Pressure [Right Arm] Blood Pressure Mean 125 128 Blood Pressure Mean [Right Arm] Blood Pressure Position Blood Pressure Position [Right Arm] Pulse Oximetry 93 93 94 Oxygen Delivery Method Nasal Cannula Nasal Cannula Nasal Cannula Oxygen Flow Rate 4 4 4 Sepsis Recent Fever Within 48 Hours Sepsis New/Unexplained Change in Mental Status Sepsis Action Taken by Nursing 07/29/25 21:40 07/29/25 21:42 07/29/25 21:45 Temperature Temperature Source Pulse Rate 86 87 Pulse Rate [Finger] Pulse Rate from SpO2 Sensor 86 84 Pulse Rhythm [Finger] Pulse Strength [Finger] Respiratory Rate 23 43 H Respiratory Effort / Characteristics Respiratory Depth Respiratory Pattern Blood Pressure 150/89 H 168/102 H Blood Pressure [Right Arm] Blood Pressure Mean 108 124 Blood Pressure Mean [Right Arm] Blood Pressure Position Blood Pressure Position [Right Arm] Pulse Oximetry 95 90 Oxygen Delivery Method Nasal Cannula Nasal Cannula Oxygen Flow Rate 4 4 Sepsis Recent Fever Within 48 Hours Sepsis New/Unexplained Change in Mental Status Sepsis Action Taken by Nursing 07/29/25 21:48 07/29/25 21:48 07/29/25 22:00 Temperature Temperature Source Pulse Rate 83 87 Pulse Rate [Finger] 83 Pulse Rate from SpO2 Sensor 84 87 Pulse Rhythm [Finger] Regular Pulse Strength [Finger] Normal Respiratory Rate 34 H 34 H 30 H Respiratory Effort / Characteristics Non-Labored Spontaneous Respiratory Depth Normal Respiratory Pattern Regular Blood Pressure 196/97 H Blood Pressure [Right Arm] 196/97 H Blood Pressure Mean 130 Blood Pressure Mean [Right Arm] 130 Blood Pressure Position Blood Pressure Position [Right Arm] Sitting Pulse Oximetry 92 92 94 Oxygen Delivery Method Nasal Cannula Nasal Cannula Nasal Cannula Oxygen Flow Rate 4 4 4 Sepsis Recent Fever Within 48 Hours Sepsis New/Unexplained Change in Mental Status Sepsis Action Taken by Nursing 07/29/25 22:03 07/29/25 22:12 07/29/25 22:15 Temperature Temperature Source Pulse Rate 79 73 76 Pulse Rate [Finger] Pulse Rate from SpO2 Sensor 80 74 76 Pulse Rhythm [Finger] Pulse Strength [Finger] Respiratory Rate 19 32 H 28 H Respiratory Effort / Characteristics Respiratory Depth Respiratory Pattern Blood Pressure 146/87 H 139/82 Blood Pressure [Right Arm] Blood Pressure Mean 106 101 Blood Pressure Mean [Right Arm] Blood Pressure Position Blood Pressure Position [Right Arm] Pulse Oximetry 94 97 96 Oxygen Delivery Method Nasal Cannula Nasal Cannula Nasal Cannula Oxygen Flow Rate 4 4 4 Sepsis Recent Fever Within 48 Hours Sepsis New/Unexplained Change in Mental Status Sepsis Action Taken by Nursing 07/29/25 22:15 07/29/25 22:18 07/29/25 22:18 Temperature Temperature Source Pulse Rate 78 Pulse Rate [Finger] 78 Pulse Rate from SpO2 Sensor 80 Pulse Rhythm [Finger] Regular Pulse Strength [Finger] Normal Respiratory Rate 42 H 42 H Respiratory Effort / Characteristics Non-Labored Spontaneous Respiratory Depth Normal Respiratory Pattern Regular Blood Pressure 139/82 150/86 H Blood Pressure [Right Arm] 150/86 H Blood Pressure Mean 108 107 Blood Pressure Mean [Right Arm] 107 Blood Pressure Position Blood Pressure Position [Right Arm] Sitting Pulse Oximetry 96 96 Oxygen Delivery Method Nasal Cannula Nasal Cannula Oxygen Flow Rate 2 4 Sepsis Recent Fever Within 48 Hours Sepsis New/Unexplained Change in Mental Status Sepsis Action Taken by Nursing 07/29/25 22:30 07/29/25 22:30 07/29/25 22:33 Temperature Temperature Source Pulse Rate 77 Pulse Rate [Finger] 78 Pulse Rate from SpO2 Sensor 78 Pulse Rhythm [Finger] Regular Pulse Strength [Finger] Normal Respiratory Rate 31 H 27 H Respiratory Effort / Characteristics Non-Labored Spontaneous Respiratory Depth Normal Respiratory Pattern Regular Blood Pressure 139/88 139/88 Blood Pressure [Right Arm] 137/84 Blood Pressure Mean 105 100 Blood Pressure Mean [Right Arm] 101 Blood Pressure Position Blood Pressure Position [Right Arm] Sitting Pulse Oximetry 92 94 Oxygen Delivery Method Nasal Cannula Nasal Cannula Oxygen Flow Rate 4 4 Sepsis Recent Fever Within 48 Hours Sepsis New/Unexplained Change in Mental Status Sepsis Action Taken by Nursing 07/29/25 22:33 07/29/25 22:34 07/29/25 22:42 Temperature Temperature Source Pulse Rate 75 77 Pulse Rate [Finger] Pulse Rate from SpO2 Sensor 74 77 Pulse Rhythm [Finger] Pulse Strength [Finger] Respiratory Rate 31 H 30 H Respiratory Effort / Characteristics Respiratory Depth Respiratory Pattern Blood Pressure 137/84 Blood Pressure [Right Arm] Blood Pressure Mean 115 Blood Pressure Mean [Right Arm] Blood Pressure Position Blood Pressure Position [Right Arm] Pulse Oximetry 94 94 Oxygen Delivery Method Oxygen Flow Rate 4 4 Sepsis Recent Fever Within 48 Hours Sepsis New/Unexplained Change in Mental Status Sepsis Action Taken by Nursing 07/29/25 22:51 Temperature Temperature Source Pulse Rate 77 Pulse Rate [Finger] Pulse Rate from SpO2 Sensor 78 Pulse Rhythm [Finger] Pulse Strength [Finger] Respiratory Rate 30 H Respiratory Effort / Characteristics Respiratory Depth Respiratory Pattern Blood Pressure Blood Pressure [Right Arm] Blood Pressure Mean Blood Pressure Mean [Right Arm] Blood Pressure Position Blood Pressure Position [Right Arm] Pulse Oximetry 94 Oxygen Delivery Method Oxygen Flow Rate 4 Sepsis Recent Fever Within 48 Hours Sepsis New/Unexplained Change in Mental Status Sepsis Action Taken by Nursing Laboratory Data 07/29/25 20:18 07/29/25 20:18 Lab Results 07/29/25 07/29/25 07/29/25 Range/Units 20:18 20:20 20:22 WBC 8.81 (4.8-10.8) K/ul RBC 4.92 (4.20-5.40) M/uL Hgb 14.6 (12.0-16.0) g/dL POC Hgb 12.2 (12.0-16.0) g/dl Hct 45.0 (37.0-47.0) % POC Hct 36 L (37-47) % MCV 91.5 (80.0-100.0) fL MCH 29.7 (25.0-34.0) pg MCHC 32.4 (32.0-36.0) g/dL RDW Std Deviation 40.1 (36.4-46.3) fL RDW Coeff of Gisselle 12.1 (11.5-14.5) % Plt Count 439 H (130-400) K/uL MPV 9.0 L (9.4-12.4) fL Immature Gran % (Auto) 0.6 % Neut % (Auto) 50.4 % Lymph % (Auto) 29.5 % Mineral % (Auto) 11.4 % Eos % (Auto) 7.4 % Baso % (Auto) 0.7 % Neut # (Auto) 4.45 (1.40-6.50) K/uL Lymph # (Auto) 2.60 (1.20-3.40) K/uL Mineral # (Auto) 1.00 H (0.11-0.59) K/uL Eos # (Auto) 0.65 H (0.00-0.50) K/uL Baso # (Auto) 0.06 (0.00-0.20) K/uL Immature Gran # (Auto) 0.05 (0.01-0.20) K/uL PT 11.0 (9.0-12.0) Seconds INR 1.0 (0.9-1.1) APTT 23 (21-31) Seconds PTT Ratio 0.8 POC Sodium 133 L (135-144) mmol/L Sodium 133 L (136-145) mmol/L POC Potassium 4.6 (3.3-5.0) mmol/L Potassium 4.5 (3.5-5.1) mmol/L POC Chloride 93 L (101-112) mmol/L Chloride 98 (98-107) mmol/L Carbon Dioxide 33 H (21-32) mmol/L POC Total CO2 30 (24-31) mmol/L Anion Gap 2 L (3-11) POC Anion Gap 15.0 L (16-25) mmol/L POC BUN 22 H (7-18) mg/dl BUN 22 (6-23) mg/dl Creatinine 1.02 (0.6-1.2) mg/dl POC Creatinine 1.2 (0.6-1.3) mg/dl Est Cr Clr Drug Dosing 31.3 ml/min eGFR 53.58 BUN/Creatinine Ratio 21.6 H (10-20) Glucose 145 H (70-99(Fasting)) mg/dl POC Glucose 132 H (70-99) mg/dl POC Glucose (other) 139 H (70-99) mg/dl Calcium 8.4 L (8.6-10.3) mg/dl POC Ioniz Calcium Ursula 1.16 (1.12-1.32) mmol/l Magnesium 2.1 (1.7-2.4) mg/dl Total Bilirubin 0.3 (0.2-1.0) mg/dl AST 13 (13-39) U/L ALT 12 (7-52) U/L Alkaline Phosphatase 74 (34-104) U/L Troponin I High Sens 6.6 (0-14) pg/ml Total Protein 4.9 L (6.0-8.3) gm/dl Albumin 2.9 L (3.4-5.0) gm/dl Globulin 2.0 L (2.5-4.0) gm/dl Albumin/Globulin Ratio 1.5 (0.9-2) Administered Medications Nicardipine HCl 25 mg/ Sodium (Chloride) 250 mls @ 50 mls/hr IV .Q5H RADHIKA; Protocol Stop: 08/28/25 20:44 Last Admin: 07/29/25 22:14 Dose: Not Given Documented By: KMS Discontinued Medications Sodium Chloride (Nss) 1,000 mls @ 999 mls/hr IV .Q1H1M ONE Stop: 07/29/25 20:59 Last Infusion: 07/29/25 21:47 Dose: Infused Documented By: Admin: 07/29/25 20:20 Dose: 999 mls/hr Documented By: ROBERT Tenecteplase 13 mg/ Syringe 2.6 mls @ 31.2 mls/min IV NOW ONE; Protocol Stop: 07/29/25 20:51 Last Admin: 07/29/25 20:48 Dose: 31.2 mls/min Documented By: ROBERT Co-signed By: [facility] Ioversol (Optiray 320 125ml) 118 ml IV ONCE ONE Stop: 07/29/25 20:10 Last Admin: 07/29/25 20:09 Dose: 118 ml Documented By: KARLIE Labetalol HCl (Labetalol Hcl Iv 5 Mg/Ml 20ml) 10 mg IV NOW STA Stop: 07/29/25 20:42 Last Admin: 07/29/25 20:45 Dose: 10 mg Documented By: ROBERT Labetalol HCl (Labetalol Hcl Iv 5 Mg/Ml 20ml) 10 mg IV NOW STA Stop: 07/29/25 21:10 Last Admin: 07/29/25 21:11 Dose: 10 mg Documented By: ROBERT Metoprolol Tartrate (Metoprolol Tartrate 1 Mg/Ml Vial) 5 mg IV NOW STA Stop: 07/29/25 21:57 Last Admin: 07/29/25 21:59 Dose: 5 mg Documented By: ROBERT Metoprolol Tartrate (Metoprolol Tartrate 1 Mg/Ml Vial) Confirm Administered Dose 5 mg IV .STK-MED ONE Stop: 07/29/25 21:59 Last Admin: 07/29/25 22:14 Dose: Not Given Documented By: ROBERT Miscellaneous (Stat Iv/Im) 1 each N/A NOW STA Stop: 07/29/25 20:41 Last Admin: 07/29/25 20:51 Dose: 1 each Documented By: ROBERT Miscellaneous (Stat Iv Infusion Titration Per Protocol) 1 each N/A NOW STA; Protocol Stop: 07/29/25 20:42 Last Admin: 07/29/25 22:14 Dose: Not Given Documented By: ROBERT Sodium Chloride (Sodium Chloride 0.9% 10ml Flush) 20 ml IV NOW STA Stop: 07/29/25 20:41 Last Admin: 07/29/25 20:51 Dose: 20 ml Documented By: ROBERT Imaging Data Radiologist's Impression: Chest X-Ray 07/29/25 19:59 Exam(s): XR CXR 1 VIEW EXAM: XR Chest, 1 View CLINICAL HISTORY: Reason for exam: neuro deficit, acute stroke suspected. TECHNIQUE: Frontal view of the chest. COMPARISON: Chest x-ray 08/01/2024. FINDINGS: Lungs/Pleural space: Postoperative clips and stable probable granulomata right lower lobe. Lungs are otherwise clear. No pneumothorax. Heart: No cardiomegaly. Mediastinum: Unremarkable. Bones/Soft Tissues: No acute abnormality. IMPRESSION: 1. No acute process in the chest. Electronically signed by: Narda Emery M.D. 07/29/25 21:[address] 07/29/25 19:59 CR Exam(s): CT HEAD Without Contrast EXAM: CT Head Without Intravenous Contrast CLINICAL HISTORY: Reason for exam: neuro deficit, acute stroke suspected. TECHNIQUE: Axial computed tomography images of the head/brain without intravenous contrast. CTDI is 42.53 mGy and DLP is 774.27 mGy-cm. Automated exposure control was utilized for the study. A dose lowering technique was utilized adhering to the principles of ALARA. Moderate motion artifact, improved with repeat scanning. COMPARISON: None. FINDINGS: Brain: No mass, edema, mass effect or acute infarct. No acute hemorrhage. Mild atrophy and chronic, nonspecific white matter disease. Ventricles: No hydrocephalus or midline shift. Bones/joints: No acute finding. Soft tissues: No scalp hematoma. Visualized Sinuses: Scattered mucosal thickening, no fluid levels. Moderate bilateral nasal cavity soft tissue nodule, probable nasal polyps. Mastoid air cells: No mastoid effusion. IMPRESSION: 1. Mild age-related findings. 2. No acute infarct, bleed, or acute intracranial abnormality. 3. Limited evaluation due to motion artifact, in spite of repeat scanning. Communications: Call Doctor Stroke Electronically signed by: Narda Emery M.D. 07/29/25 20:27 PM Head CTA 07/29/25 19:59 CR Exam(s): CTA HEAD With Contrast IV Amt: 118 cc opti 320 EXAM: CT Angiography Head With Intravenous Contrast CLINICAL HISTORY: Reason for exam: neuro deficit, acute stroke suspected. TECHNIQUE: Axial computed tomographic angiography images of the head with intravenous contrast. CTDI is 18.68 mGy and DLP is 9.34 mGy-cm. Automated exposure control was utilized for the study. A dose lowering technique was utilized adhering to the principles of ALARA. MIP reconstructed images were created and reviewed. Moderate to severe motion and artifact from venous contamination. CONTRAST: Patient received 118 cc opti 320 of IV contrast COMPARISON: Head CT same day. FINDINGS: Right internal carotid artery: Patent. Right anterior cerebral artery: Patent. Right middle cerebral artery: Patent. Right posterior cerebral artery: Patent. Right vertebral artery: Patent. Left internal carotid artery: Patent. Left anterior cerebral artery: Patent. Left middle cerebral artery: Patent. Left posterior cerebral artery: Patent. origin. Left vertebral artery: Patent. Basilar artery: Patent. Other: No gross aneurysm or large vessel occlusion. Moderate to severe limited evaluation due to artifact. IMPRESSION: 1. No aneurysm or large vessel occlusion. 2. Limited evaluation due to artifact. Communications: Call Doctor Stroke Electronically signed by: Narda Emery M.D. 07/29/25 20:32 PM Neck CTA 07/29/25 19:59 CR Exam(s): CTA NECK With Contrast IV Amt: 118 ml optiray 320 EXAM: CT Angiography Neck With Intravenous Contrast CLINICAL HISTORY: Reason for exam: neuro deficit, acute stroke suspected. TECHNIQUE: Routine carotid CT angiography protocol was performed with intravenous contrast. NASCET criteria using the distal ICAs for comparison were used for evaluation of stenoses. CTDI is 11.36 mGy and DLP is 429.44 mGy-cm. Automated exposure control was utilized for the study. A dose lowering technique was utilized adhering to the principles of ALARA. MIP reconstructed images were created and reviewed. Moderate to severe motion and artifact from collaterals in the vertebral region. CONTRAST: Patient received 118 ml optiray 320 of IV contrast COMPARISON: None. FINDINGS: Right common carotid artery: Patent. Right internal carotid artery: Dense atherosclerotic calcification of the bifurcation, with significant luminal narrowing, likely severe, 80- 90% stenosis, though motion artifact limits evaluation. Right vertebral artery: Patent. Codominant. Left common carotid artery: Patent. Left internal carotid artery: Patent. Minimal bifurcation atherosclerosis, without significant stenosis Left vertebral artery: Patent. Other: IMPRESSION: 1. Severe RIGHT ICA stenosis, probable 80-90%. 2. No other dissection/occlusion/significant stenosis. 3. Significant artifact limits detail particularly for exact luminal narrowing percentage. CAROTID STENOSIS REFERENCE USING NASCET CRITERIA: % ICA stenosis = (1 - narrowest ICA diameter/diameter of distal cervical ICA) x 100. Mild - <50% stenosis. Moderate - 50-69% stenosis. Severe - 70-94% stenosis. Near occlusion - 95-99% stenosis. Occluded - 100% stenosis. Communications: Call Doctor Stroke Electronically signed by: Narda Emery M.D. 07/29/25 20:[address] 07/29/25 21:09 Exam(s): CT HEAD Without Contrast EXAM: CT Head Without Intravenous Contrast CLINICAL HISTORY: Reason for exam: mental status change after tnk. TECHNIQUE: Axial computed tomography images of the head/brain without intravenous contrast. CTDI is 66.19 mGy and DLP is 1236.33 mGy-cm. Automated exposure control was utilized for the study. A dose lowering technique was utilized adhering to the principles of ALARA. IV contrast is present. Moderate to severe motion/artifact. COMPARISON: Head CT 8:05 p.m., same day. FINDINGS: Brain: No definite acute hemorrhage. Mild atrophy and chronic, nonspecific white matter disease. Ventricles: No hydrocephalus or midline shift. Bones/joints: No acute finding. Soft tissues: No scalp hematoma. Visualized Sinuses/nasal cavity: Bilateral ethmoid, maxillary and frontal sinus nodular mucosal thickening, suspect nasal polyposis and chronic sinusitis. No fluid levels. Mastoid air cells: No mastoid effusion. IMPRESSION: 1. No definite acute hemorrhage. 2. Moderate to severe motion/artifact. Electronically signed by: Narda Emery M.D. 07/29/25 21:57 PM Discharge Plan Visit Data Chief Complaint: Stroke Alert Stated Complaint: Stroke Alert ED Provider: Parish Muller Discharge Problem: Stroke-like symptoms, Hypertension, Right sided weakness, Carotid artery stenosis Patient Disposition: Admitted As Inpatient Condition: Critical Forms Stand Alone Forms: My [facility] Prescriptions Prescriptions: No Action metoprolol tartrate 50 mg tablet 50 mg PO AMHS lovastatin 20 mg tablet 20 mg PO HS Referrals Referrals: Alfonzo Vargas MD [Primary Care Provider] - Discharge Problem: Hypertension Qualifiers: Hypertension type: unspecified Qualified Code(s): I10 - Essential (primary) hypertension Carotid artery stenosis Qualifiers: Laterality: right Qualified Code(s): I65.21 - Occlusion and stenosis of right carotid artery
[2025-07-29] MEDS: LABETALOL HCL IV 5 MG/ML 20ML IV STA ×2 (20:45→21:11)
[2025-07-29] MEDS ORDERED: No Aspirin within 24hrs of THROMBOLYTIC-Stroke PO SCH (20:45)
[2025-07-29] MEDS: TENECTEPLASE IV ONE (20:48)
[2025-07-29 20:49] LABS: Alanine Aminotransferase 12.0 U/L (7-52); Albumin Globulin Ratio 1.5 (0.9-2); Albumin Level 2.9 gm/dl (3.4-5.0); Alkaline Phosphatase 74.0 U/L (34-104); Anion Gap 2.0 (3-11); Bilirubin,Total 0.3 mg/dl (0.2-1.0); Blood Urea Nitrogen 22.0 mg/dl (6-23); Calcium 8.4 mg/dl (8.6-10.3); Carbon Dioxide 33.0 mmol/L (21-32); Chloride 98.0 mmol/L (98-107); Creatinine Clr Calc Pharmacy 31.3 ml/min; Globulin 2.0 gm/dl (2.5-4.0); Glucose 145.0 mg/dl (70-99(Fasting)); Magnesium 2.1 mg/dl (1.7-2.4); Potassium 4.5 mmol/L (3.5-5.1); Sodium 133.0 mmol/L (136-145); Total Protein 4.9 gm/dl (6.0-8.3)
[2025-07-29] MEDS: STAT IV/IM STA (20:51)
[2025-07-29] MEDS: SODIUM CHLORIDE 0.9% 10ML FLUSH IV STA (20:51)
[2025-07-29 21:06] LABS: INR 1.0 (0.9-1.1); Partial Thromboplastin Time 23 Seconds (21-31); Prothrombin Time 11.0 Seconds (9.0-12.0)
--- NOTE | 2025-07-29 21:37 | XRay Report ---
Exam(s): XR CXR 1 VIEW EXAM: XR Chest, 1 View CLINICAL HISTORY: Reason for exam: neuro deficit, acute stroke suspected. TECHNIQUE: Frontal view of the chest. COMPARISON: Chest x-ray 08/01/2024. FINDINGS: Lungs/Pleural space: Postoperative clips and stable probable granulomata right lower lobe. Lungs are otherwise clear. No pneumothorax. Heart: No cardiomegaly. Mediastinum: Unremarkable. Bones/Soft Tissues: No acute abnormality. IMPRESSION: 1. No acute process in the chest. Electronically signed by: Narda Emery M.D. 07/29/25 21:35 PM
--- NOTE | 2025-07-29 21:58 | CT Scan Report ---
Exam(s): CT HEAD Without Contrast EXAM: CT Head Without Intravenous Contrast CLINICAL HISTORY: Reason for exam: mental status change after tnk. TECHNIQUE: Axial computed tomography images of the head/brain without intravenous contrast. CTDI is 66.19 mGy and DLP is 1236.33 mGy-cm. Automated exposure control was utilized for the study. A dose lowering technique was utilized adhering to the principles of ALARA. IV contrast is present. Moderate to severe motion/artifact. COMPARISON: Head CT 8:05 p.m., same day. FINDINGS: Brain: No definite acute hemorrhage. Mild atrophy and chronic, nonspecific white matter disease. Ventricles: No hydrocephalus or midline shift. Bones/joints: No acute finding. Soft tissues: No scalp hematoma. Visualized Sinuses/nasal cavity: Bilateral ethmoid, maxillary and frontal sinus nodular mucosal thickening, suspect nasal polyposis and chronic sinusitis. No fluid levels. Mastoid air cells: No mastoid effusion. IMPRESSION: 1. No definite acute hemorrhage. 2. Moderate to severe motion/artifact. Electronically signed by: Narda Emery M.D. 07/29/25 21:57 PM
[2025-07-29] MEDS: METOPROLOL TARTRATE 1 MG/ML VIAL IV STA (21:59)
--- NOTE | 2025-07-29 22:13 | Critical Care Consultation ---
<Statement entered by Morro Howard MD - 07/30/25 07:04> I, Morro Howard MD, reviewed the physical exam, assessment, plan, and management as documented by the Advanced Care Provider Crys Hyman PA-C, for this patient encounter. I discussed the case with them, confirmed the findings, and I concur with the proposed plan of care. I was available for consultation throughout the encounter and provided guidance as needed. Date of Consultation July 29, 2025 Assessment & Plan (1) Stroke-like symptoms: (2) Hypertension: (3) Altered mental status: (4) Fall: (5) Carotid stenosis, symptomatic, with infarction: Plan Reason Critically Ill: 1. Stroke-like symptoms 2. Severe ZEE stenosis 3. Hypertension 4. Acute hypoxic respiratory failure with concern for aspiration Neuro - CAM ICU: negative RASS GOAL 0 Avoid sedating medications Close neurologic checks per protocol CT results as above, repeat CT in 24 hours or sooner if neurologic change MRI pending BP control with goal SBP < 180mmHg, DBP < 105mmHg HOB minimum 30, aspiration precautions Stroke work-up: MRI, TTE w/ bubble study, lipid panel, A1c Start statin when taking PO PT/OT Neurology consult Vascular Surgery referral for consideration of intervention of ZEE as OP Cardiac - TTE w/ bubble study Admit EKG pending Start statin, lipid panel pending Avoid hypotension Labetalol PRN SBP > 180mmHg or DBP > 105mmHg Respiratory - HOB 30, aspiration precautions IS/Flutter as clinically feasible SpO2 goal > 92% Non-bronchospastic on exam Repeat CXR as needed GI - Diet: Strict NPO pending SALES EXEC SUP: N/A Bowel regimen: Start once taking PO SALES EXEC consult, appreciate recommendations RENAL/LYTES - No acute concerns Replete electrolytes as indicated No current indication for de jesus catheter Maintain net even to net negative Patient incontinent en route to ICU. Bladder scan and straight cath as needed. Can utilize external urine collection device ENDO - No acute concerns BG 140-180 per SCCM guidelines ISS if needed while inpatient HEME - No acute concerns Bleeding precautions S/p TNK ID - Aspiration coverage started by primary team Will repeat CXR in AM, obtain sputum sample as able Send BioFire, procalcitonin LINES/TUBES/DRAINS - PIV x2 DVT PROPHYLAXIS - Contraindicated x 24 hours post-TNK CODE STATUS - DNR/DNI per conversation with family by primary team DISPOSITION - ICU pending 24 hour CTH I have personally spent 38 minutes of critical care time in the direct management of this patient. This is a life/limb threatening event. This includes time spent evaluating patient, direct bedside care, chart review, placing orders, interpretation of diagnostic studies, discussion with consultants, patient, and family members, as well as other required patient management activities. This time is exclusive of all separately billable procedures, and teaching time and separate from and in addition to any other critical care service time. Thank you for allowing us to participate in the care of this patient. Please refer to my attending physician's documentation for any further recommendations. History of Present Illness Reason for Consultation: Post-TNK Requesting Physician: Carmelita Attending Physician: Carmelita History of Present Illness Ms. Georgiana Ashton is an 85YOF with a history of DCIS s/p lumpectomy, radiation, Tamoxifen (2011), HLD, LBBB, pelvic organ prolapse with pessary, pansinusitis with large nasal polyps who presented to [facility] ED on the evening of 07/29/2025 due to onset of stroke-like symptoms. Per report, LKW 1800. Patient developed blurry vision after that time and sustained minor fall in her bathroom. She subsequently developed R-sided facial droop, slurred speech, and R-sided weakness. EMS was summoned. On arrival to ED, patient hypertensive with NIHSS score 8. She received Labetalol 10mg x2 with improvement and underwent imaging of the brain. CTA Neck revealed 80-90% high-grade stenosis of ZEE. No LVO on CTA head. No bleeding on CTH. After consultation with stroke neurologist the patient received TNK at 2047. Following TNK administration the patient developed sudden onset hypertension and mental status change. She underwent repeat CTH which was again unremarkable. Patient has new oxygen requirement and there is concern for aspiration. CXR does not show obvious infiltrate. Laboratory work-up is overall non-revealing, no leukocytosis, anemia, PETE, or significant electrolyte disturbances. She is admitted to ICU for post-TNK care. Patient is seen on arrival to ICU 102. She is AAOx1. Hemodynamically stable. Saturating 99% on 4L NC. Daughter at bedside and provides further history. Patient is independent at baseline. No history of stroke, dementia, altered mentation. She is actively involved in her community and until recently was driving. ROS unable to be obtained due to mentation. She follows commands intermittently but has significant expressive aphasia. When asked where she is, Georgiana starts to recite her home address. She becomes visibly frustrated. Patient agitated by BP cuff and does not stay still during measurement. Allergies Allergy/AdvReac Type Severity Reaction Status Date / Time No Known Drug Allergies Allergy Verified 07/13/25 13:09 Home Medications Medication Instructions Recorded Confirmed Type lovastatin 20 mg tablet 20 mg PO HS 07/29/25 07/29/25 History metoprolol tartrate 50 mg tablet 50 mg PO AMHS 07/29/25 07/29/25 History Patient History Medical History Cardiomyopathy Normal EF 2018 55-60% EF PVC (premature ventricular contraction) Surgical History History of tonsillectomy and adenoidectomy History of tubal ligation History of oophorectomy Family History Family/Other Stroke Diabetes Coronary heart disease Brother Breast cancer Father Family history of hearing loss Sister Family history of hearing loss Other No family history of bleeding disorder Social History Smoking Status: Never smoker Do You Dip or Chew Tobacco: No; Hx Alcohol Use: No Preferred Language: Congolese Communication Ability: Effective marital status: / Current Living Situation: Alone current occupational status: retired Feels Safe at Home: Yes Review of Systems Review of Systems: All systems reviewed & are unremarkable except as noted in Subjective Physical Exam Constitutional: WD/WN, vitals as above Eyes: PERRL, conjunctivae normal, anicteric sclerae ENMT: external ear and nose normal, oropharynx normal Neck: normal visual inspection and trachea midline Respiratory: + tachypneic and symmetric chest movemen t; no retractions, does not use accessory muscles and no cough Diminished R > L, no obvious adventitious sounds Cardiovascular: Rate/Rhythm: regular rate and regular rhythm Heart Sounds: no murmur Vessels: + carotid bruit; no JVD Extremities: normal capillary refill; no edema Gastrointestinal (Abdomen): normal bowel sounds, soft, nontender, no hepatosplenomegaly Musculoskeletal: Head/Neck/Chest: normocephalic and head atraumatic Extremities: extremities normal to inspection RUE does not follow commands but lifts independently to face. LUE and BLE 5/5. Skin: no rashes, warm and dry Ecchymosis with hematoma at prior PIV site LUE Neurologic: + focal motor deficit and + confused Speech / Cognition: + abnormal speech and + expressive aphasia Motor/Sensory: no asterixis Cranial Nerves: PERRL, tongue midline and no nystagmus Intermittently cooperative with examination/tests Genitourinary: Deferred Results & Data Results & Data Vital Signs (Past 12 Hours) Vital Signs Temp Pulse Pulse Resp BP BP Pulse Ox 07/29/25 21:48 83 34 H 196/97 H 92 07/29/25 21:48 83 34 H 196/97 H 92 07/29/25 21:45 87 43 H 168/102 H 90 07/29/25 21:42 86 23 95 07/29/25 21:40 150/89 H 07/29/25 21:39 83 29 H 94 07/29/25 21:36 85 31 H 166/110 H 93 07/29/25 21:33 83 40 H 165/105 H 93 07/29/25 21:33 83 35 H 166/110 H 92 07/29/25 21:30 82 29 H 163/116 H 94 07/29/25 21:29 07/29/25 21:27 82 31 H 178/133 H 94 07/29/25 21:18 88 20 177/111 H 92 07/29/25 21:12 95 H 17 93 07/29/25 21:11 158/96 H 07/29/25 21:10 158/96 H 07/29/25 21:09 85 28 H 98 07/29/25 21:03 86 27 H 189/87 H 96 07/29/25 21:03 86 27 H 189/87 H 96 07/29/25 20:57 83 33 H 99 07/29/25 20:55 153/100 H 07/29/25 20:55 153/100 H 07/29/25 20:54 83 31 H 99 07/29/25 20:51 84 30 H 142/106 H 98 07/29/25 20:47 140/77 07/29/25 20:47 140/77 07/29/25 20:45 83 27 H 97 07/29/25 20:42 82 27 H 193/88 H 97 07/29/25 20:37 192/91 H 07/29/25 20:36 91 H 26 H 180/132 H 97 07/29/25 20:30 81 26 H 160/105 H 98 07/29/25 20:25 161/69 H 07/29/25 20:24 81 20 99 07/29/25 20:22 172/86 H 07/29/25 20:21 86 27 H 95 07/29/25 20:19 86 07/29/25 20:05 07/29/25 20:05 36.6 C O2 Del Method O2 Flow Rate 07/29/25 21:48 Nasal Cannula 4 07/29/25 21:48 Nasal Cannula 4 07/29/25 21:45 Nasal Cannula 4 07/29/25 21:42 Nasal Cannula 4 07/29/25 21:40 07/29/25 21:39 Nasal Cannula 4 07/29/25 21:36 Nasal Cannula 4 07/29/25 21:33 Nasal Cannula 4 07/29/25 21:33 Nasal Cannula 4 07/29/25 21:30 Nasal Cannula 4 07/29/25 21:29 Nasal Cannula 07/29/25 21:27 Nasal Cannula 4 07/29/25 21:18 Nasal Cannula 4 07/29/25 21:12 Nasal Cannula 4 07/29/25 21:11 07/29/25 21:10 07/29/25 21:09 Nasal Cannula 4 07/29/25 21:03 Nasal Cannula 4 07/29/25 21:03 Nasal Cannula 4 07/29/25 20:57 Nasal Cannula 4 07/29/25 20:55 07/29/25 20:55 07/29/25 20:54 Nasal Cannula 2 07/29/25 20:51 Nasal Cannula 2 07/29/25 20:47 07/29/25 20:47 07/29/25 20:45 2 07/29/25 20:42 2 07/29/25 20:37 07/29/25 20:36 2 07/29/25 20:30 2 07/29/25 20:25 07/29/25 20:24 2 07/29/25 20:22 07/29/25 20:21 2 07/29/25 20:19 07/29/25 20:05 Nasal Cannula 2 07/29/25 20:05 Laboratory Results Reviewed Diagnostic Findings Reviewed Medications Administered See RYAN Coding Level of Care Code 68196 IN/OBS CONSULT LVL 2,35M Diagnoses Stroke-like symptoms R29.90 Hypertension I10 Altered mental status R41.82 Fall W19.XXXA Carotid stenosis, symptomatic, with infarction I63.239 Time Spent (min) 38
[2025-07-29] MEDS: METOPROLOL TARTRATE 1 MG/ML VIAL IV ONE (22:14)
[2025-07-29] MEDS: STAT IV Infusion **Titration per Protocol STA (22:14)
--- NOTE | 2025-07-29 22:36 | History & Physical Report ---
Date of Service July 29, 2025 Assessment & Plan (1) Acute CVA (cerebrovascular accident): (2) Right sided weakness: (3) Carotid artery stenosis: (4) Altered mental status: Plan The patient is an 85-year-old female with past medical history including hypertension, carotid stenosis, dyslipidemia, left bundle branch block, uterine prolapse, ductal carcinoma in situ of right breast, and rectocele. The patient was brought to the emergency department via EMS, accompanied by her daughter, who noted acute onset of right sided weakness, was blurred vision and right- sided facial droop, with last known well time to be estimated 1800 this evening. The patient was noted to have a minor fall, and later on during examination did complain of left knee pain, for which an x-ray was ordered. EMS called the emergency department at the time and reported the patient to have significant right-sided weakness and facial droop, and a stroke alert was activated. Workup in the emergency department included a CT scan of head without contrast which was negative, CTA of head was negative, CT angiography head and neck showed right internal carotid artery stenosis of 80-90%. Patient was noted to have significantly elevated blood pressure in 200s over 120s, and after decision was made by telestroke neurology evaluation to give TNK, patient's target blood pressure was to be 150-160/80's. Patient received labetalol 10 mg IV x 2, normal saline 1 L bolus from the ED. She was then referred for evaluation for admission to the [facility]. Acute CVA/right ICA stenosis/admit to the intensive care unit post TNK- Patient with acute onset of right-sided weakness and facial droop. Underwent treatment with TNK in the ED, LP admitted her stroke with TNK follow- up orders CT head without contrast was negative CTA head was negative CTA neck showed 80 to 90% right internal carotid artery stenosis. MRI brain showed acute left thalamic infarction extending to the medial aspect of the left midbrain. Chronic small vessel ischemic changes, and age-related brain involutional changes. NPO Status post 1 L normal saline bolus from the ED LR at 80 mL/h Consult PT/OT/speech/neurology Echocardiogram ordered and pending to be done in the a.m. No aspirin for 24 hours Pantoprazole 40 mg IV daily Acetaminophen 1 g IV every 8 hours as needed for mild pain or fever Serial labs every morning Hypertension- Blood pressure initially was significantly elevated to 170s-190s/100s She received labetalol 10 mg IV x 2 from the ED We then gave her Lopressor 5 mg IV, with significant improvement in blood pressure. Lopressor 5 mg IV every 4 hours as needed for systolic blood pressure greater than 160 Presumptive developing aspiration pneumonia- Patient with suggestion examination of ongoing aspiration- MRSA swab Zosyn 4.5 g IV every 8 hours DuoNebs every 2 hours as needed Hyperlipidemia- On lovastatin prior to admission When cleared by speech therapy, will be placed on high-dose statin atorvastatin 40 mg daily History of Present Illness Primary Care Provider: Alfonzo Vargas MD The patient is an 85-year-old female with past medical history including hypertension, carotid stenosis, dyslipidemia, left bundle branch block, uterine prolapse, ductal carcinoma in situ of right breast, and rectocele. The patient was brought to the emergency department via EMS, accompanied by her daughter, who noted acute onset of right sided weakness, was blurred vision and right- sided facial droop, with last known well time to be estimated 1800 this evening. The patient was noted to have a minor fall, and later on during examination did complain of left knee pain, for which an x-ray was ordered. EMS called the emergency department at the time and reported the patient to have significant right-sided weakness and facial droop, and a stroke alert was activated. Workup in the emergency department included a CT scan of head without contrast which was negative, CTA of head was negative, CT angiography head and neck showed right internal carotid artery stenosis of 80-90%. Patient was noted to have significantly elevated blood pressure in 200s over 120s, and after decision was made by telestroke neurology evaluation to give TNK, patient's target blood pressure was to be 150-160/80's. Patient received labetalol 10 mg IV x 2, normal saline 1 L bolus from the ED. She was then referred for evaluation for admission to the [facility]. Allergies Allergy/AdvReac Type Severity Reaction Status Date / Time No Known Drug Allergies Allergy Verified 07/13/25 13:09 Home Medications Medication Instructions Recorded Confirmed Type lovastatin 20 mg tablet 20 mg PO HS 07/29/25 07/29/25 History metoprolol tartrate 50 mg tablet 50 mg PO [facility] 11/13/25 11/13/25 History Past Med/Surg History Problem List (Updated 07/30/25 @ 04:47 by Carlos Mae MD) Acute CVA (cerebrovascular accident) Carotid artery stenosis (Acute) Right sided weakness (Acute) Hypertension (Acute) Carotid stenosis, symptomatic, with infarction Fall Altered mental status Hypertension Stroke-like symptoms (Acute) Hyperglycemia Encounter for pessary maintenance Chronic pansinusitis Allergic rhinitis (Chronic) Cystocele, midline (Acute) Dyslipidemia (Acute) Left bundle-branch block (Acute) Nasal polyps (Chronic) Osteoporosis (Acute) Rectocele (Acute) Uterine prolapse (Acute) Medical History Cardiomyopathy Normal EF 2018 55-60% EF PVC (premature ventricular contraction) Surgical History History of tonsillectomy and adenoidectomy History of tubal ligation History of oophorectomy Family History Family/Other Stroke Diabetes Coronary heart disease Brother Breast cancer Father Family history of hearing loss Sister Family history of hearing loss Other No family history of bleeding disorder Social History Smoking Status: Never smoker Do You Dip or Chew Tobacco: No; Hx Alcohol Use: No Hx Substance Use: No Preferred Language: Lao Communication Ability: Impaired Buckle Assembler Required: No Beliefs That Will Affect Care: Christian marital status: / Current Living Situation: Family Current Living Situation Comment: granddaughter lives w/ pt current occupational status: retired Feels Safe at Home: Yes Assistive Devices: Denture - Upper, Denture - Lower and Hearing Aid - Bilateral Review of Systems Review of Systems: HPI and ROS were primarily supplied by the daughter who was in attendance, and EMS, due to patient's altered mental status associated with stroke. Physical Exam Physical Exam: The patient is confused with intermittent improvement during ED stay. Appears thin. Normocephalic and atraumatic, lying in bed and in no acute distress. HEENT--PERRL, EOMI, mucous membranes and oropharynx mildly dry. Neck--supple. No JVD. No bruits. Thyroid normal, trachea midline, no adenopathy. Heart--normal S1 and S2. No murmurs, rubs or gallops. Lungs--clear bilaterally, no respiratory distress, no accessory muscle use. Abdomen--normal bowel sounds and soft. Nontender. Nondistended, no hernias or masses, no organomegaly. Extremities--no cyanosis or clubbing. No edema. There are good distal pulses b/l. Dermatologic--normal skin turgor, normal color, no abnormal lymph nodes, no rash. Neurologic--limited examination, compared to initial history of presentation, patient beginning to get some strength and movement right upper and right lower extremity. Facial droop slowly improving. Rheumatologic--limited exam as above Psychiatric--confused and mildly lethargic, improving slowly during examination post TNK Results & Data Results & Data Vital Signs (Past 12 Hours) Vital Signs Temp Pulse Pulse Resp BP BP Pulse Ox 07/29/25 22:30 77 31 H 139/88 92 07/29/25 22:18 78 42 H 150/86 H 96 07/29/25 22:18 78 42 H 150/86 H 96 07/29/25 22:15 139/82 07/29/25 22:15 76 28 H 139/82 96 07/29/25 22:12 73 32 H 97 07/29/25 22:03 79 19 146/87 H 94 07/29/25 22:00 87 30 H 94 07/29/25 21:48 83 34 H 196/97 H 92 07/29/25 21:48 83 34 H 196/97 H 92 07/29/25 21:45 87 43 H 168/102 H 90 07/29/25 21:42 86 23 95 07/29/25 21:40 150/89 H 07/29/25 21:39 83 29 H 94 07/29/25 21:36 85 31 H 166/110 H 93 07/29/25 21:33 83 40 H 165/105 H 93 07/29/25 21:33 83 35 H 166/110 H 92 07/29/25 21:30 82 29 H 163/116 H 94 07/29/25 21:29 07/29/25 21:27 82 31 H 178/133 H 94 07/29/25 21:18 88 20 177/111 H 92 07/29/25 21:12 95 H 17 93 07/29/25 21:11 158/96 H 07/29/25 21:10 158/96 H 07/29/25 21:09 85 28 H 98 07/29/25 21:03 86 27 H 189/87 H 96 07/29/25 21:03 86 27 H 189/87 H 96 07/29/25 20:57 83 33 H 99 07/29/25 20:55 153/100 H 07/29/25 20:55 153/100 H 07/29/25 20:54 83 31 H 99 07/29/25 20:51 84 30 H 142/106 H 98 07/29/25 20:47 140/77 07/29/25 20:47 140/77 07/29/25 20:45 83 27 H 97 07/29/25 20:42 82 27 H 193/88 H 97 07/29/25 20:37 192/91 H 07/29/25 20:36 91 H 26 H 180/132 H 97 07/29/25 20:30 81 26 H 160/105 H 98 07/29/25 20:25 161/69 H 07/29/25 20:24 81 20 99 07/29/25 20:22 172/86 H 07/29/25 20:21 86 27 H 95 07/29/25 20:19 86 07/29/25 20:05 07/29/25 20:05 36.6 C 86 20 172/86 H 95 O2 Del Method O2 Flow Rate 07/29/25 22:30 Nasal Cannula 4 07/29/25 22:18 Nasal Cannula 4 07/29/25 22:18 Nasal Cannula 2 07/29/25 22:15 07/29/25 22:15 Nasal Cannula 4 07/29/25 22:12 Nasal Cannula 4 07/29/25 22:03 Nasal Cannula 4 07/29/25 22:00 Nasal Cannula 4 07/29/25 21:48 Nasal Cannula 4 07/29/25 21:48 Nasal Cannula 4 07/29/25 21:45 Nasal Cannula 4 07/29/25 21:42 Nasal Cannula 4 07/29/25 21:40 07/29/25 21:39 Nasal Cannula 4 07/29/25 21:36 Nasal Cannula 4 07/29/25 21:33 Nasal Cannula 4 07/29/25 21:33 Nasal Cannula 4 07/29/25 21:30 Nasal Cannula 4 07/29/25 21:29 Nasal Cannula 07/29/25 21:27 Nasal Cannula 4 07/29/25 21:18 Nasal Cannula 4 07/29/25 21:12 Nasal Cannula 4 07/29/25 21:11 07/29/25 21:10 07/29/25 21:09 Nasal Cannula 4 07/29/25 21:03 Nasal Cannula 4 07/29/25 21:03 Nasal Cannula 4 07/29/25 20:57 Nasal Cannula 4 07/29/25 20:55 07/29/25 20:55 07/29/25 20:54 Nasal Cannula 2 07/29/25 20:51 Nasal Cannula 2 07/29/25 20:47 07/29/25 20:47 07/29/25 20:45 2 07/29/25 20:42 2 07/29/25 20:37 07/29/25 20:36 2 07/29/25 20:30 2 07/29/25 20:25 07/29/25 20:24 2 07/29/25 20:22 07/29/25 20:21 2 07/29/25 20:19 07/29/25 20:05 Nasal Cannula 2 07/29/25 20:05 Nasal Cannula 2 Laboratory Results Laboratory Results WBC 8.20 K/ul (4.8-10.8) 07/30/25 04:12 RBC 4.43 M/uL (4.20-5.40) 07/30/25 04:12 Hgb 13.2 g/dL (12.0-16.0) 07/30/25 04:12 POC Hgb 12.2 g/dl (12.0-16.0) 07/29/25 20:22 Hct 40.6 % (37.0-47.0) 07/30/25 04:12 POC Hct 36 % (37-47) L 07/29/25 20:22 MCV 91.6 fL (80.0-100.0) 07/30/25 04:12 MCH 29.8 pg (25.0-34.0) 07/30/25 04:12 MCHC 32.5 g/dL (32.0-36.0) 07/30/25 04:12 RDW Std Deviation 40.9 fL (36.4-46.3) 07/30/25 04:12 RDW Coeff of Gisselle 12.1 % (11.5-14.5) 07/30/25 04:12 Plt Count 357 K/uL (130-400) 07/30/25 04:12 MPV 8.8 fL (9.4-12.4) L 07/30/25 04:12 Immature Gran % (Auto) 0.5 % 07/30/25 04:12 Neut % (Auto) 68.2 % 07/30/25 04:12 Lymph % (Auto) 15.7 % 07/30/25 04:12 [place] % (Auto) 10.1 % 07/30/25 04:12 Eos % (Auto) 5.1 % 07/30/25 04:12 Baso % (Auto) 0.4 % 07/30/25 04:12 Neut # (Auto) 5.59 K/uL (1.40-6.50) 07/30/25 04:12 Lymph # (Auto) 1.29 K/uL (1.20-3.40) 07/30/25 04:12 [place] # (Auto) 0.83 K/uL (0.11-0.59) H 07/30/25 04:12 Eos # (Auto) 0.42 K/uL (0.00-0.50) 07/30/25 04:12 Baso # (Auto) 0.03 K/uL (0.00-0.20) 07/30/25 04:12 Immature Gran # (Auto) 0.04 K/uL (0.01-0.20) 07/30/25 04:12 PT 11.0 Seconds (9.0-12.0) 07/29/25 20:18 INR 1.0 (0.9-1.1) 07/29/25 20:18 APTT 23 Seconds (21-31) 07/29/25 20:18 PTT Ratio 0.8 07/29/25 20:18 POC Sodium 133 mmol/L (135-144) L 07/29/25 20:22 Sodium 133 mmol/L (136-145) L 07/29/25 20:18 POC Potassium 4.6 mmol/L (3.3-5.0) 07/29/25 20:22 Potassium 4.5 mmol/L (3.5-5.1) 07/29/25 20:18 POC Chloride 93 mmol/L (101-112) L 07/29/25 20:22 Chloride 98 mmol/L (98-107) 07/29/25 20:18 Carbon Dioxide 33 mmol/L (21-32) H 07/29/25 20:18 POC Total CO2 30 mmol/L (24-31) 07/29/25 20:22 Anion Gap 2 (3-11) L 07/29/25 20:18 POC Anion Gap 15.0 mmol/L (16-25) L 07/29/25 20:22 POC BUN 22 mg/dl (7-18) H 07/29/25 20:22 BUN 22 mg/dl (6-23) 07/29/25 20:18 Creatinine 1.02 mg/dl (0.6-1.2) 07/29/25 20:18 POC Creatinine 1.2 mg/dl (0.6-1.3) 07/29/25 20:22 Est Cr Clr Drug Dosing 31.3 ml/min 07/29/25 20:18 eGFR 53.58 07/29/25 20:18 BUN/Creatinine Ratio 21.6 (10-20) H 07/29/25 20:18 Glucose 145 mg/dl (70-99(Fasting)) H 07/29/25 20:18 POC Glucose 132 mg/dl (70-99) H 07/29/25 20:20 POC Glucose (other) 139 mg/dl (70-99) H 07/29/25 20:22 Calcium 8.4 mg/dl (8.6-10.3) L 07/29/25 20:18 POC Ioniz Calcium Ursula 1.16 mmol/l (1.12-1.32) 07/29/25 20:22 Magnesium 2.1 mg/dl (1.7-2.4) 07/29/25 20:18 Total Bilirubin 0.3 mg/dl (0.2-1.0) 07/29/25 20:18 AST 13 U/L (13-39) 07/29/25 20:18 ALT 12 U/L (7-52) 07/29/25 20:18 Alkaline Phosphatase 74 U/L (34-104) 07/29/25 20:18 Troponin I High Sens 6.6 pg/ml (0-14) 07/29/25 20:18 Total Protein 4.9 gm/dl (6.0-8.3) L 07/29/25 20:18 Albumin 2.9 gm/dl (3.4-5.0) L 07/29/25 20:18 Globulin 2.0 gm/dl (2.5-4.0) L 07/29/25 20:18 Albumin/Globulin Ratio 1.5 (0.9-2) 07/29/25 20:18 Nasal Screen MRSA (PCR) Negative (Negative) 07/29/25 23:23 Adenovirus (PCR) Not Detected (NotDetected) 07/30/25 00:20 B. pertussis DNA (PCR) Not Detected (NotDetected) 07/30/25 00:20 B.parapertussis DNA PCR Not Detected (NotDetected) 07/30/25 00:20 C. pneumoniae DNA (PCR) Not Detected (NotDetected) 07/30/25 00:20 Coronavirus OC43 (PCR) Not Detected (NotDetected) 07/30/25 00:20 Coronavirus HKU1 (PCR) Not Detected (NotDetected) 07/30/25 00:20 Coronavirus 229E (PCR) Not Detected (NotDetected) 07/30/25 00:20 SARS-CoV-2 (PCR) Not Detected (NotDetected) 07/30/25 00:20 Coronavirus NL63 (PCR) Not Detected (NotDetected) 07/30/25 00:20 Human Metapneumovir PCR Not Detected (NotDetected) 07/30/25 00:20 Influenza Type A (PCR) Not Detected (NotDetected) 07/30/25 00:20 Influenza Type B (PCR) Not Detected (NotDetected) 07/30/25 00:20 M. pneumoniae (PCR) Not Detected (NotDetected) 07/30/25 00:20 Parainfluenza 1 (PCR) Not Detected (NotDetected) 07/30/25 00:20 Parainfluenza 2 (PCR) Not Detected (NotDetected) 07/30/25 00:20 Parainfluenza 3 (PCR) Not Detected (NotDetected) 07/30/25 00:20 Parainfluenza 4 (PCR) Not Detected (NotDetected) 07/30/25 00:20 RSV (PCR) Not Detected (NotDetected) 07/30/25 00:20 Entero/Rhino (PCR) Not Detected (NotDetected) 07/30/25 00:20 Impressions Chest X-Ray 07/29/25 19:59 Exam(s): XR CXR 1 VIEW EXAM: XR Chest, 1 View CLINICAL HISTORY: Reason for exam: neuro deficit, acute stroke suspected. TECHNIQUE: Frontal view of the chest. COMPARISON: Chest x-ray 08/01/2024. FINDINGS: Lungs/Pleural space: Postoperative clips and stable probable granulomata right lower lobe. Lungs are otherwise clear. No pneumothorax. Heart: No cardiomegaly. Mediastinum: Unremarkable. Bones/Soft Tissues: No acute abnormality. IMPRESSION: 1. No acute process in the chest. Electronically signed by: Narda Emery M.D. 07/29/25 21:35 PM Head CTA 07/29/25 19:59 CR Exam(s): CTA HEAD With Contrast IV Amt: 118 cc opti 320 EXAM: CT Angiography Head With Intravenous Contrast CLINICAL HISTORY: Reason for exam: neuro deficit, acute stroke suspected. TECHNIQUE: Axial computed tomographic angiography images of the head with intravenous contrast. CTDI is 18.68 mGy and DLP is 9.34 mGy-cm. Automated exposure control was utilized for the study. A dose lowering technique was utilized adhering to the principles of ALARA. MIP reconstructed images were created and reviewed. Moderate to severe motion and artifact from venous contamination. CONTRAST: Patient received 118 cc opti 320 of IV contrast COMPARISON: Head CT same day. FINDINGS: Right internal carotid artery: Patent. Right anterior cerebral artery: Patent. Right middle cerebral artery: Patent. Right posterior cerebral artery: Patent. Right vertebral artery: Patent. Left internal carotid artery: Patent. Left anterior cerebral artery: Patent. Left middle cerebral artery: Patent. Left posterior cerebral artery: Patent. origin. Left vertebral artery: Patent. Basilar artery: Patent. Other: No gross aneurysm or large vessel occlusion. Moderate to severe limited evaluation due to artifact. IMPRESSION: 1. No aneurysm or large vessel occlusion. 2. Limited evaluation due to artifact. Communications: Call Doctor Stroke Electronically signed by: Narda Emery M.D. 07/29/25 20:32 PM Neck CTA 07/29/25 19:59 CR Exam(s): CTA NECK With Contrast IV Amt: 118 ml optiray 320 EXAM: CT Angiography Neck With Intravenous Contrast CLINICAL HISTORY: Reason for exam: neuro deficit, acute stroke suspected. TECHNIQUE: Routine carotid CT angiography protocol was performed with intravenous contrast. NASCET criteria using the distal ICAs for comparison were used for evaluation of stenoses. CTDI is 11.36 mGy and DLP is 429.44 mGy-cm. Automated exposure control was utilized for the study. A dose lowering technique was utilized adhering to the principles of ALARA. MIP reconstructed images were created and reviewed. Moderate to severe motion and artifact from collaterals in the vertebral region. CONTRAST: Patient received 118 ml optiray 320 of IV contrast COMPARISON: None. FINDINGS: Right common carotid artery: Patent. Right internal carotid artery: Dense atherosclerotic calcification of the bifurcation, with significant luminal narrowing, likely severe, 80- 90% stenosis, though motion artifact limits evaluation. Right vertebral artery: Patent. Codominant. Left common carotid artery: Patent. Left internal carotid artery: Patent. Minimal bifurcation atherosclerosis, without significant stenosis Left vertebral artery: Patent. Other: IMPRESSION: 1. Severe RIGHT ICA stenosis, probable 80-90%. 2. No other dissection/occlusion/significant stenosis. 3. Significant artifact limits detail particularly for exact luminal narrowing percentage. CAROTID STENOSIS REFERENCE USING NASCET CRITERIA: % ICA stenosis = (1 - narrowest ICA diameter/diameter of distal cervical ICA) x 100. Mild - <50% stenosis. Moderate - 50-69% stenosis. Severe - 70-94% stenosis. Near occlusion - 95-99% stenosis. Occluded - 100% stenosis. Communications: Call Doctor Stroke Electronically signed by: Narda Emery M.D. 07/29/25 20:[address] 07/29/25 21:09 Exam(s): CT HEAD Without Contrast EXAM: CT Head Without Intravenous Contrast CLINICAL HISTORY: Reason for exam: mental status change after tnk. TECHNIQUE: Axial computed tomography images of the head/brain without intravenous contrast. CTDI is 66.19 mGy and DLP is 1236.33 mGy-cm. Automated exposure control was utilized for the study. A dose lowering technique was utilized adhering to the principles of ALARA. IV contrast is present. Moderate to severe motion/artifact. COMPARISON: Head CT 8:05 p.m., same day. FINDINGS: Brain: No definite acute hemorrhage. Mild atrophy and chronic, nonspecific white matter disease. Ventricles: No hydrocephalus or midline shift. Bones/joints: No acute finding. Soft tissues: No scalp hematoma. Visualized Sinuses/nasal cavity: Bilateral ethmoid, maxillary and frontal sinus nodular mucosal thickening, suspect nasal polyposis and chronic sinusitis. No fluid levels. Mastoid air cells: No mastoid effusion. IMPRESSION: 1. No definite acute hemorrhage. 2. Moderate to severe motion/artifact. Electronically signed by: Narda Emery M.D. 07/29/25 21:57 PM Knee X-Ray 07/29/25 22:49 EXAM: XR knee LT 1 or 2V routine CLINICAL HISTORY: painful left knee TECHNIQUE: Radiograph of knee was acquired. COMPARISON: none FINDINGS: There is no evidence of acute fracture, dislocation or osseous lesion. The femorotibial joint space is preserved and there is mild reduction of disc space in medial aspect of the joint. The patellofemoral joint space is mildly reduced. Few marginal osteophytes are seen. The soft tissues appear unremarkable. No evidence of joint effusion. IMPRESSION: No acute osseous or soft tissue abnormality. 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 TECHNIQUE: MRI of the brain was performed without contrast with multiplanar sequences obtained. COMPARISON: No previous studies are available for comparison. FINDINGS: Brain Parenchyma: Left thalamic and medial part of left midbrain areas of diffusion restriction eliciting faint high SI on FLAIR in keeping with acute infarction. Chronic cerebral small vessel disease and rayray-ventricular white matter ischemic changes seen denoted by bilateral multiple abnormal signal intensity foci at both periventricular and both fronto-parietal regions. Normal monson-white matter differentiation. No mass lesions or focal cortical abnormalities identified. Ventricles and Sulci: Age related brain involutional changes. No evidence of hydrocephalus. Posterior Fossa: Cerebellum appear normal without evidence of mass lesions or signal abnormalities. Vessels: No evidence of vascular malformations or aneurysms. Intracranial arteries and veins appear normal without evidence of stenosis or occlusion. Orbits and Skull Base: Orbits and skull base structures are normal without evidence of abnormalities. Bilateral significant sino nasal polyoidal lesion with opacification of most of paranasal sinuses and polypoidal lesions formation/Dedicated assessment is advised. Right sided minimal mastoid air cells effusion. IMPRESSION: 1. Acute left thalamic infarction extending to the medial aspect of the left midbrain. 2. Chronic small vessel ischemic changes. 3. Age related brain involutional changes. 4. No intracranial hemorrhage, mass effect, or hydrocephalus. 5. Incidental bilateral sinonasal polyposis. Dedicated assessment is advised. Electronically signed by Kalyan Dickens 07-30-2025 03:12 AM Code Status & VTE Plan Code Status DNR/DNI, as discussed with her daughter, THIERNO. VTE Prophylaxis Plan VTE Prophylaxis will be ordered: Yes Critical Care Time 52 minutes PG Care Time/CCT Total # of Minutes Spent Total Time Spent with Patient: Total time spent is greater than 50% in coordination of care (as documented) at patient's floor/unit and/or counseling patient: Coding Level of Care Code 10324 INT INP/OBS CARE 3/75MIN Diagnoses Acute CVA (cerebrovascular accident) I63.9 Right sided weakness R53.1 Carotid artery stenosis I65.21 Laterality: right Altered mental status R41.82 (3) Carotid artery stenosis Laterality: right Qualified Code(s): I65.21 - Occlusion and stenosis of right carotid artery
[2025-07-29] MEDS ORDERED: ONDANSETRON INJ 2 MG/ML 2 ML VIAL IV PRN (23:23)
[2025-07-29] MEDS ORDERED: ALBUT/IPRATROP 3MG/0.5MG NEB 3 ML VIAL NEB PRN (23:23)
[2025-07-29] MEDS ORDERED: PHARMACIST DISCHARGE MED REC CONSULT PRN (23:23)
[2025-07-29] MEDS: LACTATED RINGER'S 1,000 ML IV SCH (23:28)
[2025-07-29] MEDS ORDERED: LABETALOL HCL IV 5 MG/ML 20ML IV PRN (23:49)
[2025-07-30] MEDS: METOPROLOL TARTRATE 1 MG/ML VIAL IV SCH (00:12)
--- NOTE | 2025-07-30 01:05 | XRay Report ---
EXAM: XR knee LT 1 or 2V routine CLINICAL HISTORY: painful left knee TECHNIQUE: Radiograph of knee was acquired. COMPARISON: none FINDINGS: There is no evidence of acute fracture, dislocation or osseous lesion. The femorotibial joint space is preserved and there is mild reduction of disc space in medial aspect of the joint. The patellofemoral joint space is mildly reduced. Few marginal osteophytes are seen. The soft tissues appear unremarkable. No evidence of joint effusion. IMPRESSION: No acute osseous or soft tissue abnormality. 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
[2025-07-30 01:26] LABS: Chlamydia pneumoniae PCR Not Detected (NotDetected); Coronavirus 229E PCR Not Detected (NotDetected); Coronavirus CoV-2 (COVID19)PCR Not Detected (NotDetected); Coronavirus HKU1 PCR Not Detected (NotDetected); Coronavirus NL63 PCR Not Detected (NotDetected); Coronavirus OC43PCR Not Detected (NotDetected); Human Metapneumovirus PCR Not Detected (NotDetected); Parainfluenza Virus 1 PCR Not Detected (NotDetected); Parainfluenza Virus 2 PCR Not Detected (NotDetected); Parainfluenza Virus 3 PCR Not Detected (NotDetected); Parainfluenza Virus 4 PCR Not Detected (NotDetected); Respiratory Syncytial VirusPCR Not Detected (NotDetected); Rhinovirus/Enterovirus PCR Not Detected (NotDetected)
[2025-07-30] MEDS: PANTOprazole 40 MG/10 ML SYR IV SCH (02:56)
[2025-07-30] MEDS: PIPERACILLIN/TAZOBACTAM 4.5 GM/100 ML BAG IV STA (02:56)
--- NOTE | 2025-07-30 03:13 | Magnetic Resonance Report ---
EXAM: MR brain wo con CLINICAL HISTORY: CVA post TNK. TECHNIQUE: MRI of the brain was performed without contrast with multiplanar sequences obtained. COMPARISON: No previous studies are available for comparison. FINDINGS: Brain Parenchyma: Left thalamic and medial part of left midbrain areas of diffusion restriction eliciting faint high SI on FLAIR in keeping with acute infarction. Chronic cerebral small vessel disease and rayray-ventricular white matter ischemic changes seen denoted by bilateral multiple abnormal signal intensity foci at both periventricular and both fronto-parietal regions. Normal monson-white matter differentiation. No mass lesions or focal cortical abnormalities identified. Ventricles and Sulci: Age related brain involutional changes. No evidence of hydrocephalus. Posterior Fossa: Cerebellum appear normal without evidence of mass lesions or signal abnormalities. Vessels: No evidence of vascular malformations or aneurysms. Intracranial arteries and veins appear normal without evidence of stenosis or occlusion. Orbits and Skull Base: Orbits and skull base structures are normal without evidence of abnormalities. Bilateral significant sino nasal polyoidal lesion with opacification of most of paranasal sinuses and polypoidal lesions formation/Dedicated assessment is advised. Right sided minimal mastoid air cells effusion. IMPRESSION: 1. Acute left thalamic infarction extending to the medial aspect of the left midbrain. 2. Chronic small vessel ischemic changes. 3. Age related brain involutional changes. 4. No intracranial hemorrhage, mass effect, or hydrocephalus. 5. Incidental bilateral sinonasal polyposis. Dedicated assessment is advised. Electronically signed by Kalyan Dickens 07-30-2025 03:12 AM
[2025-07-30 04:35] LABS: Hematocrit (blood only) 40.6 % (37.0-47.0); Hemoglobin 13.2 g/dL (12.0-16.0); Immature Granulocytes # (auto) 0.04 K/uL (0.01-0.20); Immature Granulocytes % (auto) 0.5 %; Mean Corpuscular Hemoglobin 29.8 pg (25.0-34.0); Mean Corpuscular Volume 91.6 fL (80.0-100.0); Platelet Count 357 K/uL (130-400); RDW Standard Deviation 40.9 fL (36.4-46.3); Red Blood Count 4.43 M/uL (4.20-5.40); White Blood Count 8.20 K/ul (4.8-10.8)
[2025-07-30 04:53] LABS: Alanine Aminotransferase 15.0 U/L (7-52); Albumin Globulin Ratio 1.3 (0.9-2); Albumin Level 3.2 gm/dl (3.4-5.0); Alkaline Phosphatase 82.0 U/L (34-104); Anion Gap 4.0 (3-11); Bilirubin,Total 0.4 mg/dl (0.2-1.0); Blood Urea Nitrogen 16.0 mg/dl (6-23); Calcium 8.9 mg/dl (8.6-10.3); Carbon Dioxide 32.0 mmol/L (21-32); Chloride 101.0 mmol/L (98-107); Cholesterol 146.0 mg/dl (0-200); Creatinine Clr Calc Pharmacy 35.9 ml/min; Globulin 2.5 gm/dl (2.5-4.0); Glucose 119.0 mg/dl (70-99(Fasting)); HDL Cholesterol 49.0 mg/dl; Magnesium 2.1 mg/dl (1.7-2.4); Potassium 4.3 mmol/L (3.5-5.1); Sodium 137.0 mmol/L (136-145); Total Protein 5.7 gm/dl (6.0-8.3); Triglycerides 81.0 mg/dl (0-150)
[2025-07-30] MEDS ORDERED: METOPROLOL TARTRATE 1 MG/ML VIAL IV PRN (04:53)
--- NOTE | 2025-07-30 04:58 | Billing Data ---
Date of Service July 30, 2025 Coding Level of Care Code 04497 CRITICAL CARE
[2025-07-30 05:09] LABS: INR 1.0 (0.9-1.1); Partial Thromboplastin Time 24 Seconds (21-31); Prothrombin Time 10.5 Seconds (9.0-12.0)
[2025-07-30 05:44] LABS: Appearance Urine Clear (Clear); Glucose Urine UA Negative (Negative)
[2025-07-30 07:16] LABS: Hemoglobin A1C 6.3 % (4.5-5.6)
--- NOTE | 2025-07-30 08:36 | XRay Report ---
EXAM: XR chest 1V portable CLINICAL HISTORY: Follow-up hypoxia TECHNIQUE: An X-ray image of the chest is obtained in AP projection. COMPARISON: compared to the prior study dated 08/01/2024 FINDINGS: Pulmonary Parenchyma: Prominent hilar vascular shadows and interstitial lung markings suggestive of vascular congestion. Right lower lung zone small nodular opacities. Unchanged bilateral upper lung lobes with streaky fibrotic opacities. No evidence of consolidation, collapse, or focal opacities. No evidence of pleural effusion or pleural thickening. Heart and Mediastinum: Heart size and shape are normal. No mediastinal widening or masses. No hilar or mediastinal lymphadenopathy. Prominent aortic knuckle showing atheromatous calcification. Bony Thorax: Bony thorax appears intact without fractures or deformities. Soft Tissues: Metallic clips are seen overlying the right lower hemithorax. Unchanged. Soft tissues overlying the chest wall are unremarkable. IMPRESSION: 1. Prominent hilar vascular shadows and interstitial lung markings suggestive of vascular congestion. 2. Right lower lung zone small nodular opacities. Progression. 3. No evidence of consolidation, collapse, or focal opacities. Electronically signed by Kalyan Dickens 07-30-2025 08:35 AM
[2025-07-30] MEDS ORDERED: INFLUENZA VACC TS2025-26(65y+)/PF (IIV3) 0.5mL Syr IM ONE (09:00)
[2025-07-30] MEDS: ACETAMINOPHEN 1,000 MG/100 ML VIAL IV PRN (09:07)
[2025-07-30] MEDS: ACETAMINOPHEN 1000 MG/100 ML IV IV ONE (09:09)
--- NOTE | 2025-07-30 09:36 | Neurology Consultation ---
Date of Consultation July 30, 2025 Assessment & Plan (1) Acute CVA (cerebrovascular accident): (2) Carotid artery stenosis: Plan This patient suffered a small, acute, right medial thalamic/midbrain stroke resulting in right hemiparesis, motor speech issues, and some blurry vision. Currently she is improved and has no right upper or lower extremity weakness. She has slight facial droop and her speech is improved with no obvious motor aphasia and some slight dysarthria. The etiology of the stroke is likely small vessel ischemic disease. The patient has a significant (80 to 90%) right internal carotid artery stenosis which did not have any bearing on the left sided stroke. Patient has risk factors for stroke including hypertension, dyslipidemia, and advanced age. Recommendations: 1. Speech therapy to evaluate swallowing and overall speech 2. Repeat CT scan 24 hours post TNK 3. After 24 hours post TNK, initiate clopidogrel 75 mg daily. 4. Increase activity as per protocol including physical and Occupational Therapy 5. Consider vascular surgery consult as an outpatient but I am not certain this is necessary, given her advanced age 6. Control blood pressure as you are doing, aiming for mean arterial pressure 95-100. 7. Continue atorvastatin at 40 mg daily. Given her advanced age and total cholesterol of 146, she would not be a high-dose statin candidate. 8. Follow-up with neurology PA 2 to 3 weeks after discharge, if desired. Overall, I spent a total of 90 minutes with this case including review of records, review of MRI films, direct evaluation of the patient, report generation, and discussion of the case with the patient and RN at bedside and Dr. Hannon including differential diagnosis and treatment options. History of Present Illness Reason for Consultation: Patient is an 85-year-old, was asked to see at the request of Crys Hyman PA-C, for neurologic evaluation regarding stroke post TNK Requesting Physician: Crys Hyman PA-C Attending Physician: Kassidy Hannon MD History of Present Illness Patient has a history of hypertension, dyslipidemia, and a cardiomyopathy. She was on lovastatin and metoprolol prior to admission. In 2011 the patient underwent lumpectomy followed by radiation and tamoxifen for breast cancer. Patient was in her usual state of health evening of July 29. She cooked dinner as usual. Around 1600 she was thought to be well. Sometime after this she had the acute onset of right face, arm, and leg weakness, speech problems, and blurry vision. She arrived to the emergency room July 29 at 2004 with a temperature of 36.6, pulse 86 and regular, respiratory rate 20, blood pressure 172/86, and O2 saturation 95%. On examination she had a right facial droop, some motor aphasia, and 4/5 strength in the right arm and right leg. CBC and CHEM profile were largely unremarkable although sodium was [address] scan of the head showed aging changes but no acute changes or abnormalities. Chest x-ray was CT angiography of the head was unremarkable for any vascular stenoses or anomalies. CT angiography of the neck revealed an 89% stenosis in the right internal carotid artery. The other arteries were largely unremarkable. Blood pressure was treated with labetalol and she was given TNK. There was an initial increase in confusion and elevated blood pressure. This was treated with labetalol, repeat CT scan of the head was unremarkable, and her confusion abated some. MRI of the brain showed a small acute medial left thalamic and medial left midbrain stroke. There was mild to moderate old small vessel ischemic disease and generalized atrophy consistent with age. I reviewed these films The patient was admitted and had no significant issues since. Nursing, this morning, felt the patient was a little bit confused and perhaps her right upper extremity had some ataxia. The patient, this morning, had no complaint of pain but did have some intermittent posterior neck discomfort. She had no dizziness or vision issues. This morning, blood pressure was 140/74 and she was afebrile. Pulse was in the 70s and regular Urinalysis was unremarkable this morning and viral titers were negative. CHEM profile and CBC were largely unremarkable hemoglobin A1c was 6.3, triglycerides 81, and total cholesterol 146. Allergies Allergy/AdvReac Type Severity Reaction Status Date / Time No Known Drug Allergies Allergy Verified 07/13/25 13:09 Home Medications Medication Instructions Recorded Confirmed Type lovastatin 20 mg tablet 20 mg PO HS 07/29/25 07/29/25 History metoprolol tartrate 50 mg tablet 50 mg PO AMHS 07/29/25 07/29/25 History Patient History Medical History Cardiomyopathy Normal EF 2018 55-60% EF PVC (premature ventricular contraction) Surgical History History of tonsillectomy and adenoidectomy History of tubal ligation History of oophorectomy Family History Family/Other Stroke Diabetes Coronary heart disease Brother Breast cancer Father Family history of hearing loss Sister Family history of hearing loss Other No family history of bleeding disorder Social History Smoking Status: Never smoker Do You Dip or Chew Tobacco: No; Hx Alcohol Use: No Hx Substance Use: No Preferred Language: Dutch Communication Ability: Impaired Fig Washer Required: No Beliefs That Will Affect Care: Quaker marital status: / Current Living Situation: Family Current Living Situation Comment: granddaughter lives w/ pt current occupational status: retired Feels Safe at Home: Yes Assistive Devices: Denture - Upper, Denture - Lower and Hearing Aid - Bilateral Review of Systems Constitutional: no fever, no fatigue and no weakness Eyes: no diplopia, no eye pain and no worsening vision Ear, Nose, Mouth, Throat: no ear pain, no tinnitus, no hearing loss, no dizziness, no snoring, no hoarseness and no dysphagia Respiratory: no cough and no dyspnea Cardiovascular: no chest pain, no palpitations and no lightheadedness Gastrointestinal: no abdominal pain, no nausea and no vomiting Genitourinary: no dysuria, no urinary frequency and no urinary incontinence Musculoskeletal: + neck pain; no back pain, no radicular pain, no joint pain and no myalgia Integumentary: no rash and no lesions Neurologic: + localized weakness and + abnormal spee ch; no gait abnormality, no generalized weakness, no tingling, no numbness, no tremor(s), no abnormal movements, no headache(s), no confusion and no memory loss Psychiatric: no depression, no irritability, no anxiety, no difficulty concentrating, no confusion and no hallucinations Endocrine: no fatigue and no flushing Hematologic / Lymphatic: no easy bleeding and no easy bruising Allergy / Immunological: no urticaria and no problem reported Exam (Neuro) Physical Exam: The patient is right-handed. The patient is awake, alert, and attentive. Speech is normal without any obvious aphasia, but she does have some mild dysarthria. She can name objects and colors and repeats test phrases well. There is no significant word finding issue. Mood and affect are normal and appropriate. She was oriented to her name but not the date, where she was, or her age. She can do simple calculations readily and follows one-step commands easily. She knew left from right quickly. The discs are not visible with routine ophthalmologic examination. Pupils are 2 mm bilaterally and reactive but there is cataract formation bilaterally. Extraocular eye muscles are intact without nystagmus. Visual acuity and visual garcia seem normal grossly to confrontation. There was no foster or quadrantanopsia. There are no deficits to sensation in the face in all 3 distributions of the fifth cranial nerve bilaterally. Corneal reflexes are positive bilaterally. Patient has a mild right facial droop/asymmetry at the corner of the mouth compared to the left. He does move some voluntarily. Forehead and eyes are spared bilaterally. Hearing seems intact grossly to voice and finger rub bilaterally. Uvula deviates to the right when palate raises. There is normal sternocleidomastoid and trapezius strength bilaterally. Tongue is midline with better strength to the left than to the right. Neck has a full range of motion without discomfort. There are no cervical bruits bilaterally. There are no cranial or ocular bruits. Heart is without murmur. There is a regular rhythm and rate. Cervical, thoracic, and lumbar spine are nontender to palpation. Gait was not tested but stands sitting up in bed is reasonable and she can maintain this on her own. With outstretched arms there is no obvious drift, but she lowers the right arm slightly at the shoulder. There are no resting, postural, or action tremors. There is no ataxia with finger to nose testing. There is good facility in the hands. No other abnormal involuntary movements are noted. Motor strength is 5/5 diffusely in the arms bilaterally including deltoids, biceps, triceps, brachioradialis, wrist flexors and extensors, green chain worker, and intrinsic hand muscles. Motor strength is essential 5/5 diffusely in the legs bilaterally including hip flexors, quadriceps, hamstrings, gastrocnemius, tibialis anterior, tibialis posterior, and Peroneii muscles bilaterally. T herefore, there is no focal weakness seen in the limbs. The limbs have good tone without rigidity or spasticity. Although she is thin throughout, there is no atrophy noted in the muscles. Sensory examination is intact to touch and pin throughout all 4 limbs diffusely. Reflexes are 1/4 in the biceps, triceps, brachioradialis, and quadriceps tendons bilaterally. Achilles tendon reflexes are absent bilaterally. Toes are downgoing with plantar stimulation bilaterally. Peripheral pulses are present and of normal quality distally in all 4 limbs. There is no peripheral edema noted in the limbs. Results & Data Vital Signs (Past 12 Hours) Vital Signs Temp Pulse Pulse Resp BP BP BP 07/30/25 07:48 36.5 C 66 26 H 144/76 H 07/30/25 07:48 36.5 C 66 26 H 144/79 H 07/30/25 06:48 36.6 C 73 24 131/76 07/30/25 05:48 36.6 C 76 22 121/66 07/30/25 04:48 36.6 C 64 20 125/58 L 07/30/25 04:30 65 116/62 07/30/25 04:18 36.6 C 66 22 116/62 07/30/25 03:48 36.6 C 66 17 102/58 L 07/30/25 03:18 36.6 C 74 19 118/60 07/30/25 02:48 36.6 C 67 20 125/67 07/30/25 01:18 36.6 C 66 20 159/68 H 07/30/25 00:48 36.6 C 69 19 146/82 H 07/30/25 00:31 07/30/25 00:18 36.6 C 83 22 174/89 H 07/30/25 00:12 83 103/75 07/30/25 00:00 74 07/29/25 23:53 36.6 C 74 23 149/80 H 07/29/25 23:48 36.6 C 78 22 149/80 H 07/29/25 23:42 77 22 07/29/25 23:37 157/77 H 07/29/25 23:37 157/77 H 07/29/25 23:37 157/77 H 07/29/25 23:37 157/77 H 07/29/25 23:37 157/77 H 07/29/25 23:36 76 19 07/29/25 23:28 73 157/86 H 07/29/25 23:23 07/29/25 23:23 36.6 C 07/29/25 23:18 36.6 C 73 19 157/86 H 07/29/25 22:57 07/29/25 22:54 78 34 H 07/29/25 22:51 77 30 H 07/29/25 22:48 76 29 H 95/81 L 07/29/25 22:42 77 30 H 07/29/25 22:34 137/84 07/29/25 22:33 75 31 H 07/29/25 22:33 78 27 H 137/84 07/29/25 22:30 139/88 07/29/25 22:30 77 31 H 139/88 07/29/25 22:18 78 42 H 150/86 H 07/29/25 22:18 78 42 H 150/86 H 07/29/25 22:15 139/82 07/29/25 22:15 76 28 H 139/82 07/29/25 22:12 73 32 H 07/29/25 22:03 79 19 146/87 H 07/29/25 22:00 87 30 H 07/29/25 21:48 83 34 H 196/97 H 07/29/25 21:48 83 34 H 196/97 H 07/29/25 21:45 87 43 H 168/102 H 07/29/25 21:42 86 23 07/29/25 21:40 150/89 H 07/29/25 21:39 83 29 H 07/29/25 21:36 85 31 H 166/110 H 07/29/25 21:33 83 40 H 165/105 H 07/29/25 21:33 83 35 H 166/110 H 07/29/25 21:30 82 29 H 163/116 H 07/29/25 21:29 07/29/25 21:27 82 31 H 178/133 H 07/29/25 21:18 88 20 177/111 H 07/29/25 21:12 95 H 17 07/29/25 21:11 158/96 H 07/29/25 21:10 158/96 H 07/29/25 21:09 85 28 H 07/29/25 21:03 86 27 H 189/87 H 07/29/25 21:03 86 27 H 189/87 H 07/29/25 20:57 83 33 H 07/29/25 20:55 153/100 H 07/29/25 20:55 153/100 H 07/29/25 20:54 83 31 H Pulse Ox Pulse Ox O2 Del Method O2 Del Method O2 Flow Rate O2 Flow Rate 07/30/25 07:48 92 Room Air 07/30/25 07:48 92 Room Air 07/30/25 06:48 93 Nasal Cannula 1 07/30/25 05:48 93 Nasal Cannula 1 07/30/25 04:48 96 Nasal Cannula 1 07/30/25 04:30 07/30/25 04:18 92 Nasal Cannula 1 07/30/25 03:48 93 Nasal Cannula 1 07/30/25 03:18 91 Nasal Cannula 1 07/30/25 02:48 93 Nasal Cannula 1 07/30/25 01:18 91 Nasal Cannula 2 07/30/25 00:48 94 Nasal Cannula 2 07/30/25 00:31 Nasal Cannula 2 07/30/25 00:18 93 Nasal Cannula 2 07/30/25 00:12 07/30/25 00:00 07/29/25 23:53 92 Nasal Cannula 2 07/29/25 23:48 92 Nasal Cannula 2 07/29/25 23:42 94 07/29/25 23:37 07/29/25 23:37 07/29/25 23:37 07/29/25 23:37 07/29/25 23:37 07/29/25 23:36 95 07/29/25 23:28 07/29/25 23:23 93 Nasal Cannula 2 07/29/25 23:23 07/29/25 23:18 93 Nasal Cannula 2 07/29/25 22:57 Nasal Cannula 4 07/29/25 22:54 93 07/29/25 22:51 94 4 07/29/25 22:48 92 Nasal Cannula 4 07/29/25 22:42 94 4 07/29/25 22:34 07/29/25 22:33 94 4 07/29/25 22:33 94 Nasal Cannula 4 07/29/25 22:30 07/29/25 22:30 92 Nasal Cannula 4 07/29/25 22:18 96 Nasal Cannula 4 07/29/25 22:18 96 Nasal Cannula 2 07/29/25 22:15 07/29/25 22:15 96 Nasal Cannula 4 07/29/25 22:12 97 Nasal Cannula 4 07/29/25 22:03 94 Nasal Cannula 4 07/29/25 22:00 94 Nasal Cannula 4 07/29/25 21:48 92 Nasal Cannula 4 07/29/25 21:48 92 Nasal Cannula 4 07/29/25 21:45 90 Nasal Cannula 4 07/29/25 21:42 95 Nasal Cannula 4 07/29/25 21:40 07/29/25 21:39 94 Nasal Cannula 4 07/29/25 21:36 93 Nasal Cannula 4 07/29/25 21:33 93 Nasal Cannula 4 07/29/25 21:33 92 Nasal Cannula 4 07/29/25 21:30 94 Nasal Cannula 4 07/29/25 21:29 Nasal Cannula 07/29/25 21:27 94 Nasal Cannula 4 07/29/25 21:18 92 Nasal Cannula 4 07/29/25 21:12 93 Nasal Cannula 4 07/29/25 21:11 07/29/25 21:10 07/29/25 21:09 98 Nasal Cannula 4 07/29/25 21:03 96 Nasal Cannula 4 07/29/25 21:03 96 Nasal Cannula 4 07/29/25 20:57 99 Nasal Cannula 4 07/29/25 20:55 07/29/25 20:55 07/29/25 20:54 99 Nasal Cannula 2 PG Care Time/CCT Total # of Minutes Spent Total Time Spent with Patient: Total time spent is greater than 50% in coordination of care (as documented) at patient's floor/unit and/or counseling patient: Coding Level of Care Code 51413 INT INP/OBS CARE 3/75MIN Diagnoses Acute CVA (cerebrovascular accident) I63.9 Carotid artery stenosis I65.21 Laterality: right Time Spent (min) 90 (2) Carotid artery stenosis Laterality: right Qualified Code(s): I65.21 - Occlusion and stenosis of right carotid artery
[2025-07-30] MEDS: ATORVASTATIN 40 MG TAB PO SCH (10:39)
--- NOTE | 2025-07-30 13:20 | Pharmacy Report ---
- Date of Service July 30, 2025 - Pharmacy CVA/TIA Medication Review Medications to Prevent Stroke handout has been added to the patients discharge packet. Antiplatelet(s) * Clopidogrel to be started 24-hours post-TNK Cholesterol * High intensity statin: atorvastatin 80 mg daily DVT Prophylaxis * SCD knee Therapeutic Anticoagulation * No history of Afib/Aflutter noted Type 2 Diabetes * Patient does not have T2DM
--- NOTE | 2025-07-30 14:35 | Critical Care Progress Note ---
Date of Service July 30, 2025 Assessment & Plan (1) Stroke-like symptoms: (2) Hypertension: (3) Altered mental status: (4) Fall: (5) Carotid stenosis, symptomatic, with infarction: Plan Reason Critically Ill: 1. Stroke-like symptoms 2. Severe ZEE stenosis 3. Hypertension 4. Acute hypoxic respiratory failure with concern for aspiration Neuro - [facility] ICU: negative RASS GOAL 0 Avoid sedating medications Close neurologic checks per protocol CT results as above, repeat CT in 24 hours or sooner if neurologic change BP control with goal SBP < 180mmHg, DBP < 105mmHg HOB minimum 30, aspiration precautions Stroke work-up: MRI, TTE w/ bubble study, lipid panel, A1c Start statin when taking PO PT/OT Vascular Surgery referral for consideration of intervention of ZEE as OP Cardiac - TTE w/ bubble study Admit EKG pending Start statin, lipid panel pending Avoid hypotension Metoprolol PRN SBP > 180mmHg or DBP > 105mmHg Respiratory - HOB 30, aspiration precautions IS/Flutter as clinically feasible SpO2 goal > 92% Concern about possible aspiration Hypoxemia (SpO2 as low as 90-92% on 4L NC) Suspicious granulomata on CXR Possible RLL infiltrates and possible developing aspiration pneumonia: lalya obtain chest CT at time of head CT Non-productive cough GI - Diet: Cardiac diet SUP: N/A Bowel regimen: Start once taking PO RENAL/LYTES - No acute concerns Replete electrolytes as indicated No current indication for de jesus catheter Maintain net even to net negative Patient incontinent en route to ICU. Bladder scan and straight cath as needed. Can utilize external urine collection device ENDO - No acute concerns BG 140-180 per SCCM guidelines ISS if needed while inpatient HEME - No acute concerns Bleeding precautions S/p TNK ID - Aspiration coverage started by primary team but discontinued Will reconsider if suggestion of pneumonia on chest CT LINES/TUBES/DRAINS - PIV x2 DVT PROPHYLAXIS - Contraindicated x 24 hours post-TNK CODE STATUS - DNR/DNI per conversation with family by primary team DISPOSITION - ICU pending 24 hour CTH I have personally spent 45 minutes of critical care time in the direct management of this patient. This is a life/limb threatening event. This includes time spent evaluating patient, direct bedside care, chart review, placing orders, interpretation of diagnostic studies, discussion with consultants, patient, and family members, as well as other required patient management activities. This time is exclusive of all separately billable procedures, and teaching time and separate from and in addition to any other critical care service time. Admission and Anticipated Discharge Date Admission Date: July 29, 2025 Subjective The patient is a very pleasant 85-year-old woman who presented to the ED for evaluation of acute onset right-sided weakness, blurred vision, and right-sided facial droop. Her last known well time was estimated to be 1800, as reported by her granddaughter. She had been in her usual state of health earlier in the day, preparing dinner as usual, but subsequently experienced a minor fall in the bathroom, without head strike or loss of consciousness. On their arrival, she was noted to have significant right-sided weakness and facial droop, prompting activation of a stroke alert. On arrival to the ED, she was awake, alert, and in no acute distress, but exhibited right facial droop, mild word-finding difficulty/aphasia, and 4/5 strength with drift in the right upper and lower extremities. Her initial blood pressure was markedly elevated, ranging from the 160s to 190s systolic and 80s to 90s diastolic. She was afebrile and hemodynamically stable. A stroke workup was initiated, including CT head and CTA head/neck, which revealed no acute intracranial hemorrhage or large vessel occlusion, but did show severe (8090%) right internal carotid artery stenosis. Laboratory studies were notable for mild hyperglycemia, mild hyponatremia, and hypoalbuminemia, but no leukocytosis or acute kidney injury. After telestroke neurology consultation, she received TNK (tenecteplase) at 20:48, with blood pressure managed using IV labetalol. Following TNK administration, she developed increased confusion and recurrence of hypertension, which responded to additional labetalol. Repeat CT head remained negative for acute hemorrhage. She also developed an increased oxygen requirement, with concern for possible aspiration, and was placed on 4L nasal cannula. Chest X-ray did not show acute infiltrate. The review of systems was limited due to her altered mental status, but as per her daughter and EMS, she had no prior history of stroke, dementia, or baseline cognitive impairment. She was independent at baseline, actively involved in her community, and had been driving until recently. Physical exam in the ED and on ICU admission was notable for right-sided facial droop, expressive aphasia, and right-sided weakness, with intermittent cooperation and agitation during examination. Cardiopulmonary and abdominal exams were unremarkable, except for diminished breath sounds on the right and a carotid bruit. She was admitted to the ICU for post-TNK monitoring, blood pressure control, and aspiration precautions. Plans included close neurologic checks, repeat neuroimaging, PT/OT/speech therapy evaluation, and further stroke workup including echocardiogram and lipid panel. Statin therapy was to be initiated when able to take PO. DVT prophylaxis was held for 24 hours post-TNK. Her code status was DNR/DNI per family discussion. 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 She has no known drug allergies. Note from 07/30/2025: The patient reports feeling better. She continues to have slightly slurred speech and right-facial droop. Cleared for PO intake. Mild non- productive cough. CXR with ? granulomata, but cannot rule out RLL infiltrates. Will obtain chest CT with next head CT. Review of Systems Review of Systems: All systems reviewed & are unremarkable except as noted in HPI & below Physical Exam Physical Exam: General: In no acute distress, using Oxygenvia nasal cannula. Skin: Warm and dry to touch. Noobvious lesions. Eyes: Anicteric.Noconjunctival hyperemia or exudates.No periorbital edema. ENT: No oral thrush. No oropharyngeal erythema or exudates. Neck: No palpable masses or adenopathy. Right Carotid bruit. Respiratory: Diffusely decreased breath sounds, no wheezing or crackles. No use of accessory muscles and no prolonged exhalation. Cardiac: Distant sounds, regular rhythm, no murmurs, no gallops, no rubs; could not appreciate JV pulse elevation. GI: Soft, nontender. Extremities No clubbing,no cyanosis,no edema. Neuro: Right hand eyeglass lens generator slightly weaker than left (right-handed). Right-facial droop. Slightly slurred speech. Oriented to self, place, time, and situation. Results & Data Results & Data Vital Signs (Past 12 Hours) Vital Signs Temp Pulse Pulse Resp BP BP BP 07/30/25 13:48 36.4 C L 78 16 139/69 07/30/25 12:48 36.4 C L 63 21 115/56 L 07/30/25 11:48 36.4 C L 65 18 108/59 L 07/30/25 10:48 36.4 C L 66 24 140/80 07/30/25 09:48 36.5 C 72 23 130/68 07/30/25 08:48 36.5 C 75 18 140/74 07/30/25 07:48 36.5 C 66 26 H 144/76 H 07/30/25 07:48 36.5 C 66 26 H 144/79 H 07/30/25 06:48 36.6 C 73 24 131/76 07/30/25 05:48 36.6 C 76 22 121/66 07/30/25 04:48 36.6 C 64 20 125/58 L 07/30/25 04:30 65 116/62 07/30/25 04:18 36.6 C 66 22 116/62 07/30/25 03:48 36.6 C 66 17 102/58 L 07/30/25 03:18 36.6 C 74 19 118/60 07/30/25 02:48 36.6 C 67 20 125/67 Pulse Ox O2 Del Method O2 Flow Rate 07/30/25 13:48 94 Room Air 07/30/25 12:48 91 Room Air 07/30/25 11:48 92 Room Air 07/30/25 10:48 93 Room Air 07/30/25 09:48 92 Room Air 07/30/25 08:48 92 Room Air 07/30/25 07:48 92 Room Air 07/30/25 07:48 92 Room Air 07/30/25 06:48 93 Nasal Cannula 1 07/30/25 05:48 93 Nasal Cannula 1 07/30/25 04:48 96 Nasal Cannula 1 07/30/25 04:30 07/30/25 04:18 92 Nasal Cannula 1 07/30/25 03:48 93 Nasal Cannula 1 07/30/25 03:18 91 Nasal Cannula 1 07/30/25 02:48 93 Nasal Cannula 1 Laboratory Results 07/30/25 07/30/25 07/30/25 Unknown 11:02 04:12 WBC 8.20 RBC 4.43 Hgb 13.2 POC Hgb Hct 40.6 POC Hct MCV 91.6 MCH 29.8 MCHC 32.5 RDW Std Deviation 40.9 RDW Coeff of Gisselle 12.1 Plt Count 357 MPV 8.8 L Immature Gran % (Auto) 0.5 Neut % (Auto) 68.2 Lymph % (Auto) 15.7 Sauk % (Auto) 10.1 Eos % (Auto) 5.1 Baso % (Auto) 0.4 Neut # (Auto) 5.59 Lymph # (Auto) 1.29 Sauk # (Auto) 0.83 H Eos # (Auto) 0.42 Baso # (Auto) 0.03 Immature Gran # (Auto) 0.04 PT 10.5 INR 1.0 APTT 24 PTT Ratio 0.9 POC Sodium Sodium 137 POC Potassium Potassium 4.3 POC Chloride Chloride 101 Carbon Dioxide 32 POC Total CO2 Anion Gap 4 POC Anion Gap POC BUN BUN 16 Creatinine 0.89 POC Creatinine Est Cr Clr Drug Dosing 35.9 eGFR 63.10 BUN/Creatinine Ratio 18.0 Glucose 119 H POC Glucose 124 H POC Glucose (other) Estimat Average Glucose 134 Hemoglobin A1c 6.3 H Calcium 8.9 POC Ioniz Calcium Ursula Magnesium 2.1 Total Bilirubin 0.4 AST 19 ALT 15 Alkaline Phosphatase 82 Troponin I High Sens 9.3 Total Protein 5.7 L Albumin 3.2 L Globulin 2.5 Albumin/Globulin Ratio 1.3 Triglycerides 81 Cholesterol 146 LDL Cholesterol, Calc 81 VLDL Cholesterol, Calc 16 HDL Cholesterol 49 Cholesterol/HDL Ratio 3.0 Procalcitonin < 0.02 Urine Color Yellow Urine Appearance Clear Urine pH 6.5 Ur Specific [place] 1.032 H Urine Protein Negative Urine Glucose (UA) Negative Urine Ketones Negative Urine Blood Negative Urine Nitrite Negative Urine Bilirubin Negative Urine Urobilinogen Negative Ur Leukocyte Esterase Negative Urine Comment Nasal Screen MRSA (PCR) Adenovirus (PCR) B. pertussis DNA (PCR) B.parapertussis DNA PCR C. pneumoniae DNA (PCR) Coronavirus OC43 (PCR) Coronavirus HKU1 (PCR) Coronavirus 229E (PCR) SARS-CoV-2 (PCR) Coronavirus NL63 (PCR) Human Metapneumovir PCR Influenza Type A (PCR) Influenza Type B (PCR) M. pneumoniae (PCR) Parainfluenza 1 (PCR) Parainfluenza 2 (PCR) Parainfluenza 3 (PCR) Parainfluenza 4 (PCR) RSV (PCR) Entero/Rhino (PCR) 07/30/25 07/29/25 07/29/25 00:20 23:23 20:22 WBC RBC Hgb POC Hgb 12.2 Hct POC Hct 36 L MCV MCH MCHC RDW Std Deviation RDW Coeff of Gisselle Plt Count MPV Immature Gran % (Auto) Neut % (Auto) Lymph % (Auto) Sauk % (Auto) Eos % (Auto) Baso % (Auto) Neut # (Auto) Lymph # (Auto) Sau[place] # (Auto) Eos # (Auto) Baso # (Auto) Immature Gran # (Auto) PT INR APTT PTT Ratio POC Sodium 133 L Sodium POC Potassium 4.6 Potassium POC Chloride 93 L Chloride Carbon Dioxide POC Total CO2 30 Anion Gap POC Anion Gap 15.0 L POC BUN 22 H BUN Creatinine POC Creatinine 1.2 Est Cr Clr Drug Dosing eGFR BUN/Creatinine Ratio Glucose POC Glucose POC Glucose (other) 139 H Estimat Average Glucose Hemoglobin A1c Calcium POC Ioniz Calcium Ursula 1.16 Magnesium Total Bilirubin AST ALT Alkaline Phosphatase Troponin I High Sens Total Protein Albumin Globulin Albumin/Globulin Ratio Triglycerides Cholesterol LDL Cholesterol, Calc VLDL Cholesterol, Calc HDL Cholesterol Cholesterol/HDL Ratio Procalcitonin Urine Color Urine Appearance Urine pH Ur Specific [place] Urine Protein Urine Glucose (UA) Urine Ketones Urine Blood Urine Nitrite Urine Bilirubin Urine Urobilinogen Ur Leukocyte Esterase Urine Comment Nasal Screen MRSA (PCR) Negative Adenovirus (PCR) Not Detected B. pertussis DNA (PCR) Not Detected B.parapertussis DNA PCR Not Detected C. pneumoniae DNA (PCR) Not Detected Coronavirus OC43 (PCR) Not Detected Coronavirus HKU1 (PCR) Not Detected Coronavirus 229E (PCR) Not Detected SARS-CoV-2 (PCR) Not Detected Coronavirus NL63 (PCR) Not Detected Human Metapneumovir PCR Not Detected Influenza Type A (PCR) Not Detected Influenza Type B (PCR) Not Detected M. pneumoniae (PCR) Not Detected Parainfluenza 1 (PCR) Not Detected Parainfluenza 2 (PCR) Not Detected Parainfluenza 3 (PCR) Not Detected Parainfluenza 4 (PCR) Not Detected RSV (PCR) Not Detected Entero/Rhino (PCR) Not Detected 07/29/25 07/29/25 20:20 20:18 WBC 8.81 RBC 4.92 Hgb 14.6 POC Hgb Hct 45.0 POC Hct MCV 91.5 MCH 29.7 MCHC 32.4 RDW Std Deviation 40.1 RDW Coeff of Gisselle 12.1 Plt Count 439 H MPV 9.0 L Immature Gran % (Auto) 0.6 Neut % (Auto) 50.4 Lymph % (Auto) 29.5 Sauk % (Auto) 11.4 Eos % (Auto) 7.4 Baso % (Auto) 0.7 Neut # (Auto) 4.45 Lymph # (Auto) 2.60 Sauk # (Auto) 1.00 H Eos # (Auto) 0.65 H Baso # (Auto) 0.06 Immature Gran # (Auto) 0.05 PT 11.0 INR 1.0 APTT 23 PTT Ratio 0.8 POC Sodium Sodium 133 L POC Potassium Potassium 4.5 POC Chloride Chloride 98 Carbon Dioxide 33 H POC Total CO2 Anion Gap 2 L POC Anion Gap POC BUN BUN 22 Creatinine 1.02 POC Creatinine Est Cr Clr Drug Dosing 31.3 eGFR 53.58 BUN/Creatinine Ratio 21.6 H Glucose 145 H POC Glucose 132 H POC Glucose (other) Estimat Average Glucose Hemoglobin A1c Calcium 8.4 L POC Ioniz Calcium Ursula Magnesium 2.1 Total Bilirubin 0.3 AST 13 ALT 12 Alkaline Phosphatase 74 Troponin I High Sens 6.6 Total Protein 4.9 L Albumin 2.9 L Globulin 2.0 L Albumin/Globulin Ratio 1.5 Triglycerides Cholesterol LDL Cholesterol, Calc VLDL Cholesterol, Calc HDL Cholesterol Cholesterol/HDL Ratio Procalcitonin Urine Color Urine Appearance Urine pH Ur Specific [place] Urine Protein Urine Glucose (UA) Urine Ketones Urine Blood Urine Nitrite Urine Bilirubin Urine Urobilinogen Ur Leukocyte Esterase Urine Comment Nasal Screen MRSA (PCR) Adenovirus (PCR) B. pertussis DNA (PCR) B.parapertussis DNA PCR C. pneumoniae DNA (PCR) Coronavirus OC43 (PCR) Coronavirus HKU1 (PCR) Coronavirus 229E (PCR) SARS-CoV-2 (PCR) Coronavirus NL63 (PCR) Human Metapneumovir PCR Influenza Type A (PCR) Influenza Type B (PCR) M. pneumoniae (PCR) Parainfluenza 1 (PCR) Parainfluenza 2 (PCR) Parainfluenza 3 (PCR) Parainfluenza 4 (PCR) RSV (PCR) Entero/Rhino (PCR) Diagnostic Findings Chest X-Ray 11/13/25 19:59 Exam(s): XR CXR 1 VIEW EXAM: XR Chest, 1 View CLINICAL HISTORY: Reason for exam: neuro deficit, acute stroke suspected. TECHNIQUE: Frontal view of the chest. COMPARISON: Chest x-ray 08/01/2024. FINDINGS: Lungs/Pleural space: Postoperative clips and stable probable granulomata right lower lobe. Lungs are otherwise clear. No pneumothorax. Heart: No cardiomegaly. Mediastinum: Unremarkable. Bones/Soft Tissues: No acute abnormality. IMPRESSION: 1. No acute process in the chest. Electronically signed by: Narda Emery M.D. 07/29/25 21:[address] 07/29/25 19:59 CR Exam(s): CT HEAD Without Contrast EXAM: CT Head Without Intravenous Contrast CLINICAL HISTORY: Reason for exam: neuro deficit, acute stroke suspected. TECHNIQUE: Axial computed tomography images of the head/brain without intravenous contrast. CTDI is 42.53 mGy and DLP is 774.27 mGy-cm. Automated exposure control was utilized for the study. A dose lowering technique was utilized adhering to the principles of ALARA. Moderate motion artifact, improved with repeat scanning. COMPARISON: None. FINDINGS: Brain: No mass, edema, mass effect or acute infarct. No acute hemorrhage. Mild atrophy and chronic, nonspecific white matter disease. Ventricles: No hydrocephalus or midline shift. Bones/joints: No acute finding. Soft tissues: No scalp hematoma. Visualized Sinuses: Scattered mucosal thickening, no fluid levels. Moderate bilateral nasal cavity soft tissue nodule, probable nasal polyps. Mastoid air cells: No mastoid effusion. IMPRESSION: 1. Mild age-related findings. 2. No acute infarct, bleed, or acute intracranial abnormality. 3. Limited evaluation due to motion artifact, in spite of repeat scanning. Communications: Call Doctor Stroke Electronically signed by: Narda Emery M.D. 07/29/25 20:27 PM Head CTA 07/29/25 19:59 CR Exam(s): CTA HEAD With Contrast IV Amt: 118 cc opti 320 EXAM: CT Angiography Head With Intravenous Contrast CLINICAL HISTORY: Reason for exam: neuro deficit, acute stroke suspected. TECHNIQUE: Axial computed tomographic angiography images of the head with intravenous contrast. CTDI is 18.68 mGy and DLP is 9.34 mGy-cm. Automated exposure control was utilized for the study. A dose lowering technique was utilized adhering to the principles of ALARA. MIP reconstructed images were created and reviewed. Moderate to severe motion and artifact from venous contamination. CONTRAST: Patient received 118 cc opti 320 of IV contrast COMPARISON: Head CT same day. FINDINGS: Right internal carotid artery: Patent. Right anterior cerebral artery: Patent. Right middle cerebral artery: Patent. Right posterior cerebral artery: Patent. Right vertebral artery: Patent. Left internal carotid artery: Patent. Left anterior cerebral artery: Patent. Left middle cerebral artery: Patent. Left posterior cerebral artery: Patent. origin. Left vertebral artery: Patent. Basilar artery: Patent. Other: No gross aneurysm or large vessel occlusion. Moderate to severe limited evaluation due to artifact. IMPRESSION: 1. No aneurysm or large vessel occlusion. 2. Limited evaluation due to artifact. Communications: Call Doctor Stroke Electronically signed by: Narda Emery M.D. 07/29/25 20:32 PM Neck CTA 07/29/25 19:59 CR Exam(s): CTA NECK With Contrast IV Amt: 118 ml optiray 320 EXAM: CT Angiography Neck With Intravenous Contrast CLINICAL HISTORY: Reason for exam: neuro deficit, acute stroke suspected. TECHNIQUE: Routine carotid CT angiography protocol was performed with intravenous contrast. NASCET criteria using the distal ICAs for comparison were used for evaluation of stenoses. CTDI is 11.36 mGy and DLP is 429.44 mGy-cm. Automated exposure control was utilized for the study. A dose lowering technique was utilized adhering to the principles of ALARA. MIP reconstructed images were created and reviewed. Moderate to severe motion and artifact from collaterals in the vertebral region. CONTRAST: Patient received 118 ml optiray 320 of IV contrast COMPARISON: None. FINDINGS: Right common carotid artery: Patent. Right internal carotid artery: Dense atherosclerotic calcification of the bifurcation, with significant luminal narrowing, likely severe, 80- 90% stenosis, though motion artifact limits evaluation. Right vertebral artery: Patent. Codominant. Left common carotid artery: Patent. Left internal carotid artery: Patent. Minimal bifurcation atherosclerosis, without significant stenosis Left vertebral artery: Patent. Other: IMPRESSION: 1. Severe RIGHT ICA stenosis, probable 80-90%. 2. No other dissection/occlusion/significant stenosis. 3. Significant artifact limits detail particularly for exact luminal narrowing percentage. CAROTID STENOSIS REFERENCE USING NASCET CRITERIA: % ICA stenosis = (1 - narrowest ICA diameter/diameter of distal cervical ICA) x 100. Mild - <50% stenosis. Moderate - 50-69% stenosis. Severe - 70-94% stenosis. Near occlusion - 95-99% stenosis. Occluded - 100% stenosis. Communications: Call Doctor Stroke Electronically signed by: Narda Emery M.D. 07/29/25 20:[address] 07/29/25 21:09 Exam(s): CT HEAD Without Contrast EXAM: CT Head Without Intravenous Contrast CLINICAL HISTORY: Reason for exam: mental status change after tnk. TECHNIQUE: Axial computed tomography images of the head/brain without intravenous contrast. CTDI is 66.19 mGy and DLP is 1236.33 mGy-cm. Automated exposure control was utilized for the study. A dose lowering technique was utilized adhering to the principles of ALARA. IV contrast is present. Moderate to severe motion/artifact. COMPARISON: Head CT 8:05 p.m., same day. FINDINGS: Brain: No definite acute hemorrhage. Mild atrophy and chronic, nonspecific white matter disease. Ventricles: No hydrocephalus or midline shift. Bones/joints: No acute finding. Soft tissues: No scalp hematoma. Visualized Sinuses/nasal cavity: Bilateral ethmoid, maxillary and frontal sinus nodular mucosal thickening, suspect nasal polyposis and chronic sinusitis. No fluid levels. Mastoid air cells: No mastoid effusion. IMPRESSION: 1. No definite acute hemorrhage. 2. Moderate to severe motion/artifact. Electronically signed by: Narda Emery M.D. 07/29/25 21:57 PM Knee X-Ray 07/29/25 22:49 EXAM: XR knee LT 1 or 2V routine CLINICAL HISTORY: painful left knee TECHNIQUE: Radiograph of knee was acquired. COMPARISON: none FINDINGS: There is no evidence of acute fracture, dislocation or osseous lesion. The femorotibial joint space is preserved and there is mild reduction of disc space in medial aspect of the joint. The patellofemoral joint space is mildly reduced. Few marginal osteophytes are seen. The soft tissues appear unremarkable. No evidence of joint effusion. IMPRESSION: No acute osseous or soft tissue abnormality. 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 COMPARISON: compared to the prior study dated 08/01/2024 FINDINGS: Pulmonary Parenchyma: Prominent hilar vascular shadows and interstitial lung markings suggestive of vascular congestion. Right lower lung zone small nodular opacities. Unchanged bilateral upper lung lobes with streaky fibrotic opacities. No evidence of consolidation, collapse, or focal opacities. No evidence of pleural effusion or pleural thickening. Heart and Mediastinum: Heart size and shape are normal. No mediastinal widening or masses. No hilar or mediastinal lymphadenopathy. Prominent aortic knuckle showing atheromatous calcification. Bony Thorax: Bony thorax appears intact without fractures or deformities. Soft Tissues: Metallic clips are seen overlying the right lower hemithorax. Unchanged. Soft tissues overlying the chest wall are unremarkable. IMPRESSION: 1. Prominent hilar vascular shadows and interstitial lung markings suggestive of vascular congestion. 2. Right lower lung zone small nodular opacities. Progression. 3. No evidence of consolidation, collapse, or focal opacities. Electronically signed by Kalyan Dickens 07-30-2025 08:35 AM Brain MRI 07/30/25 23:23 EXAM: MR brain wo con CLINICAL HISTORY: CVA post TNK. TECHNIQUE: MRI of the brain was performed without contrast with multiplanar sequences obtained. COMPARISON: No previous studies are available for comparison. FINDINGS: Brain Parenchyma: Left thalamic and medial part of left midbrain areas of diffusion restriction eliciting faint high SI on FLAIR in keeping with acute infarction. Chronic cerebral small vessel disease and rayray-ventricular white matter ischemic changes seen denoted by bilateral multiple abnormal signal intensity foci at both periventricular and both fronto-parietal regions. Normal monson-white matter differentiation. No mass lesions or focal cortical abnormalities identified. Ventricles and Sulci: Age related brain involutional changes. No evidence of hydrocephalus. Posterior Fossa: Cerebellum appear normal without evidence of mass lesions or signal abnormalities. Vessels: No evidence of vascular malformations or aneurysms. Intracranial arteries and veins appear normal without evidence of stenosis or occlusion. Orbits and Skull Base: Orbits and skull base structures are normal without evidence of abnormalities. Bilateral significant sino nasal polyoidal lesion with opacification of most of paranasal sinuses and polypoidal lesions formation/Dedicated assessment is advised. Right sided minimal mastoid air cells effusion. IMPRESSION: 1. Acute left thalamic infarction extending to the medial aspect of the left midbrain. 2. Chronic small vessel ischemic changes. 3. Age related brain involutional changes. 4. No intracranial hemorrhage, mass effect, or hydrocephalus. 5. Incidental bilateral sinonasal polyposis. Dedicated assessment is advised. Electronically signed by Kalyan Dickens 07-30-2025 03:12 AM Medications Administered Home Medications Medication Instructions Recorded Confirmed Last Taken lovastatin 20 mg tablet 20 mg PO HS 07/29/25 07/29/25 Unknown metoprolol tartrate 50 mg tablet 50 mg PO [facility] 07/29/25 07/29/25 Unknown Active Medications Generic Name Dose Route Start Last Admin Trade Name Freq PRN Reason Stop Dose Admin Acetaminophen 1,000 mg in 100 mls @ 400 mls/hr 07/30/25 08:51 07/30/25 09:22 Ofirmev IV 08/02/25 08:50 Infused Q8H PRN Infusion Pain or Fever Miscellaneous 1 each 07/30/25 07:30 07/30/25 12:09 Icu Protocol For Hyperglycemia N/A 08/01/25 07:29 Not Given [facility] Coding Level of Care Code 98662 CRITICAL CARE 1ST 30-74M Diagnoses Stroke-like symptoms R29.90 Hypertension I10 Altered mental status R41.82 Fall W19.XXXA Carotid stenosis, symptomatic, with infarction I63.239
--- NOTE | 2025-07-30 14:46 | XCELERA ---
[id number] \\[id number]
--- NOTE | 2025-07-30 17:12 | Hospitalist Progress Note ---
Date of Service July 30, 2025 Assessment & Plan (1) Acute CVA (cerebrovascular accident): (2) Right sided weakness: (3) Carotid artery stenosis: (4) Altered mental status: Plan # Acute ischemic stroke in the left thalamus/lateral midbrain Right-sided weakness, blurred vision, and right-sided facial droop. - Treated in ED with TNK, significant improvement in symptoms - Post-TNK target BP 150-160/80s, monitored in ICU. IV metoprolol PRN - Maintain normal glycemia and normothermia - Echocardiogram ordered and pending - No antiplatelet for 24 hours post-TNK - discussed with Dr. Tate - recommended initiation of plavix - Consultations for speech therapy, PT/OT, and neurology made # Right ICA stenosis Opposite side of stroke. - Continue medications for secondary stroke prevention - Referral to vascular surgery for outpatient follow-up # Hypertension On metoprolol 50 mg b.i.d. at home. - metoprolol IV p.r.n. for BP above goal of 150-160 systolic # Aspiration pneumonia or pneumonitis Suggested on exam in ED. - Follow-up chest x-ray report appears relatively clear - MRSA swab negative - Continue pip-tazo and DuoNebs p.r.n. Consider stopping pip-tazo # Hyperlipidemia Was on lovastatin prior to admission. - LDL is 81 - Change to high-intensity statin - Start atorvastatin 40 mg # Dysphagia/aspiration - observed in ED Passed ST swallow eval today, has had neurologic improvement # DVT Prophylaxis: SCDs Medical Complexity: Medical decision making was complex, high risk for clinical deterioration morbidity, or mortality for this encounter. High risk medications: less than 24h post TNK, IV metoprolol Admission and Anticipated Discharge Date Admission Date: July 29, 2025 Subjective The patient came in with weakness on the right side of her body, blurred vision, and a drooping right side of her face. She was treated in the emergency department with TNK. After the TNK treatment, her target blood pressure is 150- 160/80s, and she is being monitored in the ICU. An echocardiogram has been ordered and is pending. She should not take antiplatelet for 24 hours after the TNK treatment. Consultations have been made for speech therapy, physical therapy/occupational therapy, and neurology. She has a history of high blood pressure and high cholesterol. At home, she takes metoprolol 50 mg twice a day. She was on lovastatin before being admitted, and her LDL is 81, so she should be switched to a high-intensity statin. She was cleared for eating speech therapy evaluation. She has improved today, according to her daughter speech and right sided weakness significantly improved compared to yesterday. Physical Exam Physical Exam: Last 24h vitals reviewed GEN: no acute distress, sleeping in bed HEENT: pupils equal, sclerae anicteric, moist MM RESP: normal WOB, CTAB CV: reg no mrg ABD: soft/nt/nd +BT : no de jesus SKIN: warm and dry, no generalized rashes NEURO: Has been awake and verbal, speech fully understandable. R face droop and R weakness improved. Probable R VF cut. Results & Data Results & Data Vital Signs (Past 12 Hours) Vital Signs Temp Pulse Resp BP BP Pulse Ox O2 Del Method 07/30/25 16:48 36.6 C 85 19 141/81 H 94 Room Air 07/30/25 15:48 36.4 C L 79 18 127/75 94 Room Air 07/30/25 14:48 36.4 C L 83 20 123/69 94 Room Air 07/30/25 13:48 36.4 C L 78 16 139/69 94 Room Air 07/30/25 12:48 36.4 C L 63 21 115/56 L 91 Room Air 07/30/25 11:48 36.4 C L 65 18 108/59 L 92 Room Air 07/30/25 10:48 36.4 C L 66 24 140/80 93 Room Air 07/30/25 09:48 36.5 C 72 23 130/68 92 Room Air 07/30/25 08:48 36.5 C 75 18 140/74 92 Room Air 07/30/25 07:48 36.5 C 66 26 H 144/76 H 92 Room Air 07/30/25 07:48 36.5 C 66 26 H 144/79 H 92 Room Air 07/30/25 06:48 36.6 C 73 24 131/76 93 Nasal Cannula 07/30/25 05:48 36.6 C 76 22 121/66 93 Nasal Cannula O2 Flow Rate 07/30/25 16:48 07/30/25 15:48 07/30/25 14:48 07/30/25 13:48 07/30/25 12:48 07/30/25 11:48 07/30/25 10:48 07/30/25 09:48 07/30/25 08:48 07/30/25 07:48 07/30/25 07:48 07/30/25 06:48 1 07/30/25 05:48 1 Laboratory Results - Labs: - Hemoglobin A1c: 6.3 - CBC: Hemoglobin 13.2 - INR: 1.0 - Sodium: 137 - Potassium: 4.3 - BUN: 16 - Creatinine: 0.89 - Isyew-ed-becq glucose: 132 - LFTs: Normal - Troponin: 9 - Albumin: 3.2 - Total cholesterol: 146 - LDL: 81 - Procalcitonin: Normal - Urinalysis: Normal - Nasal MRSA: Negative - Respiratory BioFire: Negative - Imaging: - Brain MRI: Acute left thalamic infarct extending to medial left midbrain, chronic small vessel disease age-related and focal changes, incidental bilateral sinonasal polyposis - Chest x-ray (07/30/2025): Bibasilar streak opacities, potentially atelectasis, no pleural effusions, pulmonary sublimation pattern - Chest x-ray (07/29/2025): No acute process, right lower lobe granulomas - Neck CTA: Severe right ICA stenosis 80-90% - Head CTA: Negative, limited evaluation due to artifact, no acute findings, limited due to motion PG Care Time/CCT Total # of Minutes Spent Total Time Spent with Patient: Total time spent is greater than 50% in coordination of care (as documented) at patient's floor/unit and/or counseling patient: Coding Level of Care Code 93575 SUB INP/OBS CARE 3/50MIN Diagnoses Acute CVA (cerebrovascular accident) I63.9 Right sided weakness R53.1 Carotid artery stenosis I65.21 Laterality: right Altered mental status R41.82 (3) Carotid artery stenosis Laterality: right Qualified Code(s): I65.21 - Occlusion and stenosis of right carotid artery
--- NOTE | 2025-07-30 20:14 | Electrocardiogram Report ---
Test Reason : Blood Pressure : */* mmHG Vent. Rate : 81 BPM Atrial Rate : 81 BPM P-R Int : 168 ms QRS Dur : 136 ms QT Int : 432 ms P-R-T Axes : 80 -33 120 degrees QTcB Int : 501 ms Sinus rhythm with occasional Premature ventricular complexes Left axis deviation Non-specific intra-ventricular conduction block Minimal voltage criteria for LVH, may be normal variant ( Holley product ) Cannot rule out Anterior infarct , age undetermined T wave abnormality, consider lateral ischemia Abnormal ECG When compared with ECG of 20-Jul-2015 11:05, Premature ventricular complexes are now Present Confirmed by Aj Rosario ([id number]) on 07/30/2025 8:14:18 PM Referred By: REFERRED SELF Confirmed By: Aj Rosario
[2025-07-30] MEDS: METOPROLOL TARTRATE 50 MG TAB PO SCH (20:16)
--- NOTE | 2025-07-31 00:59 | CT Scan Report ---
Exam(s): CT HEAD Without Contrast EXAM: CT Head Without Intravenous Contrast CLINICAL HISTORY: Reason for exam: Post TPA/TNK 24 hour. TECHNIQUE: Axial computed tomography images of the head/brain without intravenous contrast. CTDI is 36 mGy and DLP is 624 mGy-cm. Automated exposure control was utilized for the study. A dose lowering technique was utilized adhering to the principles of ALARA. Moderate to severe motion artifact. COMPARISON: Head CT 07/29/2025, and MRI brain 07/30/2025. FINDINGS: Brain/Ventricles: Acute left thalamic infarct is now visible on CT. No acute hemorrhage. No mass effect, hydrocephalus or herniation. Bones/Soft tissues: Unchanged. Visualized Sinuses/Mastoid air cells: Stable nasal cavity and maxillary sinus disease including polyposis. IMPRESSION: 1. Acute left thalamic infarct is now evident on CT. 2. No hemorrhage, hydrocephalus or herniation. 3. Moderate to severe motion artifact. Electronically signed by: Narda Emery M.D. 07/31/25 00:58 AM
--- NOTE | 2025-07-31 01:01 | CT Scan Report ---
Exam(s): CT CHEST Without Contrast EXAM: CT Chest Without Intravenous Contrast CLINICAL HISTORY: Reason for exam: Abnormal CXR. TECHNIQUE: Axial computed tomography images of the chest without intravenous contrast. CTDI is 36 mGy and DLP is 624 mGy-cm. Automated exposure control was utilized for the study. A dose lowering technique was utilized adhering to the principles of ALARA. Moderate artifact from breathing motion. COMPARISON: Same day chest x-ray. FINDINGS: Lungs: Minimal peripheral nodular scarring, predominantly right upper and middle lobe. Otherwise, clear. No focal infiltrate or consolidation. Pleural space: No effusion. No pneumothorax. Pulmonary arteries: No engorgement. Aorta: No aneurysm. Heart: No cardiomegaly. No significant pericardial effusion. Bones/joints: No acute fracture. Soft tissues: Small hiatal hernia. No hilar mass or adenopathy. Lymph nodes: No enlarged lymph nodes. IMPRESSION: 1. No CHF or acute abnormality. Electronically signed by: Narda Emery M.D. 07/31/25 01:01 AM
--- NOTE | 2025-07-31 01:06 | Communication Note ---
<Statement entered by Morro Howard MD - 07/31/25 07:05> I, Morro Howard MD, reviewed the physical exam, assessment, plan, and management as documented by the Advanced Care Provider Crys Hyman PA-C, for this patient encounter. I discussed the case with them, confirmed the findings, and I concur with the proposed plan of care. I was available for consultation throughout the encounter and provided guidance as needed. Date of Service: July 31, 2025 Patient admitted 07/29/2025 with acute CVA s/p TNK. Symptoms continue to improve. 24 hour interval CTH shows no bleeding. CT Chest not indicative of infection. Remains hemodynamically stable. I transitioned metoprolol tartrate from IV to her home PO formulation and dosage. Patient's critical care needs have resolved and she is stable for transfer out of ICU. Can d/c empiric antibiotics as well given CT Chest findings. [facility] remains available for repeat consultation/additional questions or concerns. Coding Level of Care Code None
[2025-07-31 04:51] LABS: Hematocrit (blood only) 40.5 % (37.0-47.0); Hemoglobin 13.5 g/dL (12.0-16.0); Immature Granulocytes # (auto) 0.04 K/uL (0.01-0.20); Immature Granulocytes % (auto) 0.5 %; Mean Corpuscular Hemoglobin 30.4 pg (25.0-34.0); Mean Corpuscular Volume 91.2 fL (80.0-100.0); Platelet Count 382 K/uL (130-400); RDW Standard Deviation 40.1 fL (36.4-46.3); Red Blood Count 4.44 M/uL (4.20-5.40); White Blood Count 7.28 K/ul (4.8-10.8)
[2025-07-31 05:06] LABS: Alanine Aminotransferase 17.0 U/L (7-52); Albumin Globulin Ratio 1.2 (0.9-2); Albumin Level 3.3 gm/dl (3.4-5.0); Alkaline Phosphatase 84.0 U/L (34-104); Anion Gap 4.0 (3-11); Bilirubin,Total 0.5 mg/dl (0.2-1.0); Blood Urea Nitrogen 15.0 mg/dl (6-23); Calcium 9.2 mg/dl (8.6-10.3); Carbon Dioxide 33.0 mmol/L (21-32); Chloride 99.0 mmol/L (98-107); Creatinine Clr Calc Pharmacy 43.8 ml/min; Globulin 2.8 gm/dl (2.5-4.0); Glucose 109.0 mg/dl (70-99(Fasting)); Magnesium 2.1 mg/dl (1.7-2.4); Potassium 4.7 mmol/L (3.5-5.1); Sodium 136.0 mmol/L (136-145); Total Protein 6.1 gm/dl (6.0-8.3)
[2025-07-31 05:17] LABS: INR 1.0 (0.9-1.1); Partial Thromboplastin Time 25 Seconds (21-31); Prothrombin Time 10.7 Seconds (9.0-12.0)
[2025-07-31] MEDS: CLOPIDOGREL BISULFATE 75 MG TAB PO SCH (07:40)
[2025-07-31] MEDS: ATORVASTATIN 40 MG TAB PO SCH (07:40)
[2025-07-31] MEDS ORDERED: PANTOprazole 40 MG/10 ML SYR IV SCH (09:00)
--- NOTE | 2025-07-31 14:39 | Hospitalist Progress Note ---
Date of Service July 31, 2025 Assessment & Plan (1) Acute CVA (cerebrovascular accident): (2) Right sided weakness: (3) Carotid artery stenosis: (4) Altered mental status: Plan # Acute ischemic stroke in the left thalamus/lateral midbrain presenting symptoms of Right-sided weakness, blurred vision, and right-sided facial droop. - Treated in ED with TNK, significant improvement in symptoms - Post-TNK target BP 150-160/80s, monitored in ICU. IV metoprolol PRN - Maintain normal glycemia and normothermia - Echo 07/30 normal LV size and function EF 55-60% septal motion consistent with IVCD normal atrial sizes positive bubble study with small intracardiac shunt grade 1 diastolic dysfunction no significant valvular disease - there has not been atrial fibrillation on the monitor - start Plavix this morning since we are greater than 24 hours out from TNK, as recommended by neurologist - Consultations for speech therapy, PT/OT, and neurology made - mobilize out of bed # Right ICA stenosis Opposite side of stroke. - Continue medications for secondary stroke prevention - Referral to vascular surgery for outpatient follow-up # Hypertension On metoprolol 50 mg b.i.d. at home. resumed - metoprolol IV p.r.n. for BP above goal of 150-160 systolic # Aspiration pneumonitis Suggested on exam in ED. - Follow-up chest x-ray report appears relatively clear, CT chest overnight without any pulmonary infiltrates or evidence of infection - MRSA swab negative - stop pip-tazo # Hyperlipidemia Was on lovastatin prior to admission. - LDL is 81 - Changed to high-intensity statin - atorvastatin 40 mg # Dysphagia/aspiration - observed in ED Passed ST swallow eval, has had neurologic improvement # DVT Prophylaxis: start enoxaparin tonight Admission and Anticipated Discharge Date Admission Date: July 29, 2025 Subjective The patient is a 74-year-old female who came in for evaluation after having a stroke. A head CT done at midnight showed she had a stroke in the left thalamus, but there was no bleeding, or other acute changes. She was started on oral metoprolol overnight, and the antibiotics were stopped. Her status will be de- escalated to PCU. She will start taking Plavix 75 mg daily, continue atorvastatin 40 mg daily, and metoprolol 50 mg twice daily. The Protonix was stopped since she is eating. This morning, she was awake and speaking well without any trouble understanding. However, she is making some errors in her speech or showing signs of forgetfulness and confusion, having a significant amount of trouble reading. Typically she reads her Bible every single morning. She still has a droop on the right side of her face, and her right eye gaze is somewhat midline to leftward. She has difficulty reading, but the weakness in her right arm and leg has significantly improved. She has a good appetite and is eating well. Physical Exam Physical Exam: General Appearance: Awake, alert, oriented to hospital and basic situation but not to reason for hospitalization. Vital signs: Reviewed past 24h vital signs in EMR, unremarkable. HEENT: Extraocular movements notable for inability to abduct right eye. Pupils equal, round, reactive to light. Sclerae anicteric. Respiratory: Lungs clear bilaterally, normal work of breathing. Cardiovascular: Regular rhythm, no murmurs, rubs, or gallops. Gastrointestinal: Soft, nontender, nondistended. Back, Musculoskeletal: Bilateral upper extremities strength 5/5, no pronator dri ft, slightly more difficulty with coordination of right arm and hand. Lower extremity strength 5/5 bilaterally. Extremities: Lower extremities warm, well perfused, no edema. Skin: Warm, dry, no rashes. Neurological: Right facial droop, Right eye abducens palsy, sensation intact to light touch on face, arms, and legs, possible mild right-sided neglect.Visual field exam by confrontation difficult to interpret, possible decreased visual field on right for right eye, may be related to inability to abduct right eye well. Psychiatric: Normal. Results & Data Results & Data Vital Signs (Past 12 Hours) Vital Signs Temp Pulse Resp BP Pulse Ox 07/31/25 08:00 166/90 H 07/31/25 08:00 166/90 H 07/31/25 08:00 166/90 H 07/31/25 08:00 166/90 H 07/31/25 08:00 74 22 92 07/31/25 07:30 77 18 88 L 07/31/25 07:00 66 24 93 07/31/25 07:00 169/89 H 07/31/25 07:00 169/89 H 07/31/25 07:00 169/89 H 07/31/25 07:00 169/89 H 07/31/25 07:00 169/89 H 07/31/25 05:30 63 22 95 07/31/25 05:00 152/78 H 07/31/25 05:00 152/78 H 07/31/25 05:00 152/78 H 07/31/25 05:00 152/78 H 07/31/25 05:00 152/78 H 07/31/25 05:00 67 19 93 07/31/25 04:30 147/71 H 07/31/25 04:30 147/71 H 07/31/25 04:30 147/71 H 07/31/25 04:30 147/71 H 07/31/25 04:30 147/71 H 07/31/25 04:30 64 24 91 07/31/25 04:00 36.6 C 07/31/25 04:00 70 19 93 07/31/25 03:30 152/88 H 07/31/25 03:30 152/88 H 07/31/25 03:30 152/88 H 07/31/25 03:30 64 21 92 07/31/25 03:30 152/88 H 07/31/25 03:30 152/88 H 07/31/25 03:30 152/88 H 07/31/25 03:00 150/79 H 07/31/25 03:00 150/79 H 07/31/25 03:00 150/79 H 07/31/25 03:00 150/79 H 07/31/25 03:00 62 22 92 07/31/25 02:45 168/91 H 07/31/25 02:45 168/91 H 07/31/25 02:45 168/91 H 07/31/25 02:45 168/91 H 07/31/25 02:45 168/91 H 07/31/25 02:45 63 19 93 Diagnostic Findings - Laboratory Studies: - INR: 1.0 - PTT: Normal - Sodium: 136 - Potassium: 4.7 - Creatinine: 0.73 - LFTs: Normal except albumin 3.3 - CBC: Within normal limits - Hemoglobin: 13.5 - Imaging: - Chest CT (07/31/2025): No acute abnormality, minimal peripheral nodular scarring in right upper and middle lobe, no pneumothorax, no pleural effusions, small hiatal hernia - Head CT (07/31/2025): Acute left thalamic infarct, no hemorrhage, hydrocephalus, or herniation PG Care Time/CCT Total # of Minutes Spent Total Time Spent with Patient: Total time spent is greater than 50% in coordination of care (as documented) at patient's floor/unit and/or counseling patient: Coding Level of Care Code 37464 SUB INP/OBS CARE 350MIN Diagnoses Acute CVA (cerebrovascular accident) I63.9 Right sided weakness R53.1 Carotid artery stenosis I65.21 Laterality: right Altered mental status R41.82 (3) Carotid artery stenosis Laterality: right Qualified Code(s): I65.21 - Occlusion and stenosis of right carotid artery
[2025-07-31] MEDS: ENOXAPARIN INJ 40 MG/0.4 ML SYR SQ ONE (16:47)
[2025-08-01 05:01] LABS: Hematocrit (blood only) 42.6 % (37.0-47.0); Hemoglobin 13.9 g/dL (12.0-16.0); Immature Granulocytes # (auto) 0.04 K/uL (0.01-0.20); Immature Granulocytes % (auto) 0.4 %; Mean Corpuscular Hemoglobin 29.5 pg (25.0-34.0); Mean Corpuscular Volume 90.4 fL (80.0-100.0); Platelet Count 365 K/uL (130-400); RDW Standard Deviation 39.5 fL (36.4-46.3); Red Blood Count 4.71 M/uL (4.20-5.40); White Blood Count 9.94 K/ul (4.8-10.8)
[2025-08-01 05:14] LABS: Alanine Aminotransferase 17.0 U/L (7-52); Albumin Globulin Ratio 1.5 (0.9-2); Albumin Level 3.6 gm/dl (3.4-5.0); Alkaline Phosphatase 83.0 U/L (34-104); Anion Gap 6.0 (3-11); Bilirubin,Total 0.6 mg/dl (0.2-1.0); Blood Urea Nitrogen 15.0 mg/dl (6-23); Calcium 9.4 mg/dl (8.6-10.3); Carbon Dioxide 33.0 mmol/L (21-32); Chloride 95.0 mmol/L (98-107); Creatinine Clr Calc Pharmacy 40.9 ml/min; Globulin 2.4 gm/dl (2.5-4.0); Glucose 117.0 mg/dl (70-99(Fasting)); Magnesium 2.1 mg/dl (1.7-2.4); Potassium 4.6 mmol/L (3.5-5.1); Sodium 134.0 mmol/L (136-145); Total Protein 6.0 gm/dl (6.0-8.3)
--- NOTE | 2025-08-01 14:23 | Hospitalist Progress Note ---
Date of Service August 01, 2025 Assessment & Plan (1) Acute CVA (cerebrovascular accident): (2) Right sided weakness: (3) Carotid artery stenosis: (4) Altered mental status: Plan # Acute ischemic stroke in the left thalamus/lateral midbrain presenting symptoms of Right-sided weakness, blurred vision, and right-sided facial droop. - Treated in ED with TNK, significant improvement in symptoms - Post-TNK target BP 150-160/80s, blood pressure currently at goal can work on slowly normalizing over next 1 to 2 weeks - Echo 07/30 normal LV size and function EF 55-60% septal motion consistent with IVCD normal atrial sizes positive bubble study with small intracardiac shunt grade 1 diastolic dysfunction no significant valvular disease - there has not been atrial fibrillation on the monitor - neurologist recommended starting Plavix which was initiated - PT and OT recommending acute rehab, will also strongly benefit from ST for her aphasia - discussed with care coordination # Right ICA stenosis Opposite side of stroke. - Continue medications for secondary stroke prevention - Referral to vascular surgery for outpatient follow-up # Hypertension On metoprolol 50 mg b.i.d. at home. resumed she will probably need addition of an ARB soon # Aspiration pneumonitis, dysphagia - treated with pip-tazo that was stopped on 07/31 because she was asymptomatic and chest CT was clear of any infiltrates Passed ST swallow eval, has had neurologic improvement # Hyperlipidemia Was on lovastatin prior to admission. - LDL is 81 - Changed to high-intensity statin - atorvastatin 40 mg # DVT Prophylaxis: enoxaparin Admission and Anticipated Discharge Date Admission Date: July 29, 2025 Subjective The patient is an 85-year-old woman with a midbrain stroke treated with tenecteplase. She has improved right-sided weakness and right oculomotor nerve palsy. She has significant aphasia but can make her needs known. She is sitting up and asking to watch a football game but has trouble using the remote control. She denies pain or shortness of breath and does not perceive right-sided weakness. Physical Exam Physical Exam: General Appearance: Alert and oriented to basic situation. Vital signs: Reviewed past 24h vital signs in EMR, notable for: BP 145/78, 150/76. HEENT: Expressive and receptive aphasia. Right oculomotor nerve palsy, otherwise EOMI. Full visual garcia. Right facial droop. Respiratory: Lungs clear bilaterally. Cardiovascular: Regular heart rhythm, no murmurs, rubs, or gallops. Gastrointestinal: Abdomen soft, nontender, nondistended. Extremities: Extremities warm, well perfused, no edema. Neurological: No significant right arm or leg weakness on seated exam, however, while walking she tends to be veering or leaning to the right. Gait is unsteady using walker with therapist assistance. Psychiatric: Normal. Results & Data Results & Data Vital Signs (Past 12 Hours) Vital Signs Temp Pulse Pulse Resp BP BP Pulse Ox 08/01/25 13:51 79 08/01/25 12:06 36.5 C 62 16 146/78 H 95 08/01/25 09:52 36.5 C 65 19 148/76 H 94 08/01/25 09:00 68 22 91 08/01/25 08:00 83 31 H 93 08/01/25 07:47 36.9 C 08/01/25 07:38 153/82 H 08/01/25 07:38 153/82 H 08/01/25 07:38 153/82 H 08/01/25 07:38 153/82 H 08/01/25 07:38 153/82 H 08/01/25 07:36 81 26 H 92 08/01/25 07:00 72 33 H 90 08/01/25 04:00 36.6 C 20 145/78 H 98 O2 Del Method O2 Flow Rate 08/01/25 13:51 08/01/25 12:06 Room Air 08/01/25 09:52 Room Air 08/01/25 09:00 08/01/25 08:00 08/01/25 07:47 08/01/25 07:38 08/01/25 07:38 08/01/25 07:38 08/01/25 07:38 08/01/25 07:38 08/01/25 07:36 Room Air 08/01/25 07:00 08/01/25 04:00 Nasal Cannula 1 Laboratory Results - Laboratory Studies: - Sodium: 134 - Potassium: 4.6 - Creatinine: 0.78 - WBC: 9 - Hemoglobin: 13.9 PG Care Time/CCT Total # of Minutes Spent Total Time Spent with Patient: Total time spent is greater than 50% in coordination of care (as documented) at patient's floor/unit and/or counseling patient: Coding Level of Care Code 90471 SUB INP/OBS CARE MIN Diagnoses Acute CVA (cerebrovascular accident) I63.9 Right sided weakness R53.1 Carotid artery stenosis I65.21 Laterality: right Altered mental status R41.82 (3) Carotid artery stenosis Laterality: right Qualified Code(s): I65.21 - Occlusion and stenosis of right carotid artery
--- NOTE | 2025-08-01 15:55 | Discharge Summary ---
Discharge Summary Date of Service August 02, 2025 Principal Dx & Hospital Course #1 = Principal Diagnosis (1) Acute CVA (cerebrovascular accident): (2) Right sided weakness: (3) Carotid artery stenosis: (4) Altered mental status: Plan # Acute ischemic stroke in the left thalamus/lateral midbrain presenting symptoms of Right-sided weakness, right-sided facial droop, blurred vision. - Treated in ED with TNK, significant improvement in symptoms especially R weakness - Post-TNK target BP 150-160/80s, blood pressure currently at goal can work on slowly normalizing over next 1 to 2 weeks - Echo 07/30 normal LV size and function EF 55-60% septal motion consistent with IVCD normal atrial sizes positive bubble study with small intracardiac shunt grade 1 diastolic dysfunction no significant valvular disease - no atrial fibrillation on the monitor - A1c 6.3% prediabetic range - provided education on diet, already an avid walker and very active for her age - lovastatin was stopped and she was started on high intensity statin - neurologist recommended starting Plavix which was initiated - persistent neurological deficits include some degree of expressive and receptive aphasia, R facial droop, subtle R weakness, cannot abduct R eye - PT and OT recommending acute rehab, will also benefit from ST for her aphasia She has had difficulty reading, usually reads her bible every morning. I showed her some text with large type and she was able to read it out loud. I didn't test comprehension however. # Right ICA stenosis Opposite side of stroke. - Continue medications for secondary stroke prevention - Referral to vascular surgery for outpatient follow-up - I believe she has seen Dr. Robles in the past # Hypertension On metoprolol 50 mg b.i.d. at home. resumed Start low dose ARB # Aspiration pneumonitis, dysphagia - admitting exam in ED was consistent with an aspiration event - treated with pip-tazo that was stopped on 07/31 because she was asymptomatic and chest CT was clear of any infiltrates Passed ST swallow eval, has had neurologic improvement Resolved # Hyperlipidemia Was on lovastatin prior to admission. - LDL is 81 - Changed to high-intensity statin - atorvastatin 40 mg # DVT Prophylaxis: enoxaparin Discharged to [facility] for acute rehab I updated her daughter at bedside 08/02 Notes For Next Care Provider Acute ischemic stroke Medication Changes From Visit Added plavix Changed lovastatin to atorva Admission HPI Per Admitting Provider The patient is an 85-year-old female with past medical history including hypertension, carotid stenosis, dyslipidemia, left bundle branch block, uterine prolapse, ductal carcinoma in situ of right breast, and rectocele. The patient was brought to the emergency department via EMS, accompanied by her daughter, who noted acute onset of right sided weakness, was blurred vision and right- sided facial droop, with last known well time to be estimated 1800 this evening. The patient was noted to have a minor fall, and later on during examination did complain of left knee pain, for which an x-ray was ordered. EMS called the emergency department at the time and reported the patient to have significant right-sided weakness and facial droop, and a stroke alert was activated. Workup in the emergency department included a CT scan of head without contrast which was negative, CTA of head was negative, CT angiography head and neck showed right internal carotid artery stenosis of 80-90%. Patient was noted to have significantly elevated blood pressure in 200s over 120s, and after decision was made by telestroke neurology evaluation to give TNK, patient's target blood pressure was to be 150-160/80's. Patient received labetalol 10 mg IV x 2, normal saline 1 L bolus from the ED. [facility] Exam General Appearance: Alert and oriented to basic situation. Sitting up in chair Vital signs: Reviewed past 24h unremarkable Exam unchanged 08/02: HEENT: no conj injection Respiratory: Lungs clear bilaterally. Cardiovascular: Regular heart rhythm, no murmurs, rubs, or gallops. Gastrointestinal: Abdomen soft, nontender, nondistended. Extremities: Extremities warm, well perfused, no edema. Neurological: No significant right arm or leg weakness on seated exam, however, while walking she tends to be veering or leaning to the right. Unsteady gait. Expressive and receptive aphasia. Right oculomotor nerve palsy, otherwise EOMI. Full visual agrcia. Right facial droop. Psychiatric: Normal. Discharge Plan Discharge Items Patient Disposition: Transfer Inpatient Rehab Fac Reason For Visit: CVA, POST TNK IN ED Discharge Diagnosis: Acute ischemic stroke Condition on Discharge: Good Activity: Per Instructions section Weightbearing: Full weightbearing Non-emergency contact: Primary Care Provider Call non-emergency contact if: you have any medication questions and your symptoms worsen Follow-up/Referrals: Alfonzo Vargas MD [Primary Care Provider] - Diet: Heart Healthy Diet Texture: Dental soft (bite-sized) Addtl Attending Provider Instructions: PT and OT evaluate and treat ST evaluate and treat for aphasia Make follow up appointment with vascular surgery Dr. Robles for carotid stenosis New medications: Plavix Atorvastatin Losartan Pending Studies at Discharge: No Stand-Alone Forms: [facility], Medications to Prevent Stroke Skilled Items Patient informed of condition?: Yes DNR: Yes Discharge Level of Care: Acute rehab Communicable Disease: No Discharge Prognosis: Improving Lines: None Urinary Catheter: No Medications and DC Order Prescriptions: New atorvastatin 40 mg Tablet 40 mg PO QAM Qty: 0 0RF losartan 25 mg Tablet 25 mg PO QAM Qty: 0 0RF clopidogrel 75 mg Tablet 75 mg PO DAILY Qty: 0 0RF Continued metoprolol tartrate 50 mg tablet 50 mg PO [facility]HS Discontinued lovastatin 20 mg tablet 20 mg PO HS Discharge Orders: Discharge Order (Routine); Ordered 08/02/25 Ordered By: Kassidy Haynes/Other Patient Handouts: Prediabetes Admission Data Admit Date/Time: 07/29/25 22:35 Attending Provider: Kassidy Hannon Admit Provider: Carlos Mae Primary Care Provider: Alfonzo Vargas Other Providers: Carlos Mae; Morro Howard; Ruddy Couch; Rayshawn Tate; Monique Weeks; Elsa Beebe; Ирина Saldaña; [facility] Hospital Stay Data Consultations 07/29/25 21:01 ED Decision to Admit Stat 07/29/25 23:23 Consult Press Tool Maker Routine 07/29/25 23:37 Consult Neurology Routine Diagnostic Imagining Performed 07/29/25 19:59 CT angio head w con Stat CT angio neck with con Stat CT head/brain wo con Stat 07/29/25 21:09 CT head/brain wo con Stat 07/30/25 20:45 CT chest diagnostic wo con Routine CT head/brain wo con Routine 07/30/25 23:23 MR brain wo con Routine Discharge Instructions Given to Patient (Per Discharging Provider) PT and OT evaluate and treat ST evaluate and treat for aphasia Make follow up appointment with vascular surgery Dr. Robles for carotid stenosis New medications: Plavix Atorvastatin Losartan Total Time Total Time Spent Total Time Spent (In Minutes): I personally spent: 35 minutes today on clinical care activities including: reviewing chart notes and vital signs discussion with personal caregiver examining and counseling the patient counseling the patient's family writing orders writing prescriptions, discharge instructions documentation Coding Level of Care Code 74123 INP/OBS DISCH >30 MIN Diagnoses Acute CVA (cerebrovascular accident) I63.9 Right sided weakness R53.1 Carotid artery stenosis I65.21 Laterality: right Altered mental status R41.82
[2025-08-02 04:42] VITALS: RESP 18
[2025-08-02 07:21] VITALS: BP 132/79; TEMP 98.4; O2SAT 95
[2025-08-02] MEDS: LOSARTAN POTASSIUM 25 MG TAB PO SCH (09:13)
[2025-08-02] MEDS ORDERED: STROKE PATIENT DISCHARGE STA (10:35)
[2025-08-02 11:21] VITALS: PULSE 66
== END 2025-08-02 12:32 | DRG 61 ==
LOC: ED 20:04 → 1E 22:35 → SUATTDRO 22:35 → 1E 22:57 → 2S 08-01 09:52